=== PATIENT | female | born 1950 | race Caucasian/White ===

== ENCOUNTER 2016-10-11 23:17 | Inpatient (IN) | payer MEDICAID ==
[2016-10-12] MEDS ORDERED: METOCLOPRAMIDE HCL INJ/PF 10 MG/2 ML SDV IV ONE (03:30)
[2016-10-12] MEDS ORDERED: NORMAL SALINE 1000 ML 1,000 ML IV ONE (03:30)
[2016-10-12 03:49] LABS: ABSOLUTE BASOPHILS # (AUTO) 0.1 10^3/uL (0.0-0.2); ABSOLUTE EOSINOPHILS # (AUTO) 0.1 10^3/uL (0.0-0.6); ABSOLUTE LYMPHOCYTES (AUTO) 2.4 10^3/uL (0.5-4.7); ABSOLUTE MONOCYTES (AUTO) 0.5 10^3/uL (0.1-1.4); ABSOLUTE NEUT (AUTO) 11.4 10^3/uL (1.7-8.2); BASOPHILS % (AUTO) 0.7 % (0-2); EOSINOPHILS % (AUTO) 0.7 % (0-6); HEMOGLOBIN 14.4 g/dL (12.0-15.5); HGB HCT DIFFERENCE 0.2; LYMPHOCYTES % (AUTO) 16.6 % (13-45); MEAN CORPUSCULAR HEMOGLOBIN 30.1 pg (27.0-33.4); MEAN CORPUSCULAR HGB CONC 33.5 g/dL (32.0-36.0); MEAN CORPUSCULAR VOLUME 90 fl (80-97); MONOCYTES % (AUTO) 3.4 % (3-13); RED BLOOD COUNT 4.79 10^6/uL (3.72-5.28); RED CELL DISTRIBUTION WIDTH 13.6 % (11.5-14.0); SEGMENTED NEUTROPHILS % (AUTO) 78.6 % (42-78); WHITE BLOOD COUNT 14.5 10^3/uL (4.0-10.5)
[2016-10-12 04:15] LABS: ALANINE AMINOTRANSFERASE 37 U/L (9-52); ALKALINE PHOSPHATASE 116 U/L (38-126); ANION GAP 15 (5-19); ASPARTATE AMINO TRANSFERASE 35 U/L (14-36); BILIRUBIN,TOTAL 0.4 mg/dL (0.2-1.3); BLOOD UREA NITROGEN 19 mg/dL (7-20); CALCIUM 9.9 mg/dL (8.4-10.2); CARBON DIOXIDE 22 mmol/L (22-30); CHLORIDE 106 mmol/L (98-107); CREATININE RESULT 1.58 mg/dL (0.52-1.25); GLUCOSE 119 mg/dL (75-110); LIPASE 89.7 U/L (23-300); POTASSIUM 4.8 mmol/L (3.6-5.0); SODIUM 142.7 mmol/L (137-145); TOTAL PROTEIN 7.5 g/dL (6.3-8.2)
[2016-10-12 04:45] LABS: AMORPHOUS SEDIMENT,URINE TRACE /HPF; APPEARANCE,URINE CLEAR; BILIRUBIN,URINE NEGATIVE (NEGATIVE); GLUCOSE, URINE NEGATIVE (NEGATIVE); KETONES,URINE NEGATIVE (NEGATIVE); LEUKOCYTE ESTERASE,URINE NEGATIVE (NEGATIVE); NITRITE,URINE NEGATIVE (NEGATIVE); PROTEIN,URINE NEGATIVE (NEGATIVE); URINE SPECIFIC GRAVITY 1.011; UROBILINOGEN,URINE NEGATIVE mg/dL (<2.0)
[2016-10-12] MEDS ORDERED: PROMETHAZINE HCL INJ 25 MG/1 ML VIAL IM ONE (05:26)
[2016-10-12] MEDS ORDERED: PROMETHAZINE HCL INJ 25 MG/1 ML VIAL ONE (05:47)
--- NOTE | 2016-10-12 05:49 | ER Document Report ---
ED General - General Chief Complaint: Abdominal Pain Stated Complaint: ABDOMINAL PAIN Notes: Patient is a 66-year-old female presents with complaint of upper abdominal pain and vomiting. She says it's been ongoing for approximately 2 weeks. She is followed by Dr. Duque who has been working her up outpatient. She eventually had a HIDA scan performed this week. She did not you get the results. She says for last 4 days she's vomited every time she's tried to eat. She says she can barely hold down any liquids. She says she feels very dehydrated and unwell. No fevers. She's had diarrhea. No blood or stool. No other complaints at this time. TRAVEL OUTSIDE OF THE [place] IN LAST 30 DAYS: No - Related Data Allergies/Adverse Reactions: chlordiazepoxide Allergy (Severe, Verified 09/25/16 11:36) codeine [Codeine] Allergy (Severe, Verified 09/25/16 11:36) N&V, HIVES diazepam [From Valium] Allergy (Severe, Verified 09/25/16 11:36) HEART RACE, N&V trazodone Allergy (Verified 09/25/16 11:36) Past Medical History - General Information source: Patient - Social History Smoking Status: Never Smoker Chew tobacco use (# tins/day): No Frequency of alcohol use: None Drug Abuse: None Family History: Hypertension Patient has suicidal ideation: No Patient has homicidal ideation: No - Past Medical History Cardiac Medical History: Reports: Hx Hypertension Denies: Hx Coronary Artery Disease, Hx Heart Attack Pulmonary Medical History: Reports: Hx Bronchitis Denies: Hx Asthma, Hx COPD, Hx Pneumonia, Hx Tuberculosis Neurological Medical History: Denies: Hx Cerebrovascular Accident, Hx Seizures GI Medical History: Reports: Hx Gastroesophageal Reflux Disease, Hx Ulcer. Denies: Hx Hepatitis, Hx Hiatal Hernia Musculoskeltal Medical History: Denies Hx Arthritis Infectious Medical History: Denies: Hx Hepatitis Past Surgical History: Reports: Hx Hysterectomy. Denies: Hx Mastectomy, Hx Open Heart Surgery, Hx Pacemaker - Immunizations Hx Diphtheria, Pertussis, Tetanus Vaccination: No Review of Systems - Review of Systems Notes: My Normal Review Basic REVIEW OF SYSTEMS: CONSTITUTIONAL : Denies fever, chills, or sweats. Denies recent illness. RESPIRATORY: Denies cough, cold, or chest congestion. Denies shortness of breath, difficulty breathing, or wheezing. GASTROINTESTINAL: Some epigastric abdominal pain. Denies nausea, vomiting, or diarrhea. Denies constipation. Last BM: GENITOURINARY: Denies difficulty urinating, painful urination, burning, frequency, or blood in urine. MUSCULOSKELETAL: Denies neck or back pain or joint pain or swelling. SKIN: Denies rash or skin lesions. NEUROLOGICAL: Denies altered mental status or loss of consciousness. Denies headache. Denies weakness or paralysis or loss of use of either side. Denies problems with gait or speech. Denies sensory or motor loss. ALL OTHER SYSTEMS REVIEWED AND NEGATIVE. Physical Exam - Vital signs Vitals: Resp 16 10/12/16 04:00 - Notes Notes: General Appearance: Well nourished, alert, cooperative, no acute distress, no obvious discomfort. Vitals: reviewed, See vital signs table. Head: no swelling or tenderness to the head Eyes: PERRL, EOMI, Conjuctiva clear Mouth: No decreasd moisture Neck: Supple, no neck tenderness, No thyromegaly Lungs: No wheezing, No rales, No rhonci, No accessory muscle use, good air exchange bilaterally. Heart: Tachycardic rate, Regular rythm, No murmur, no rub Abdomen: Normal BS, soft, No rigidity, mild epigastric abdominal tenderness to palpation, mild abdominal distention. No guarding, no rebound, no abdominal masses, no organomegaly Extremities: strength 5/5 in all extremities, good pulses in all extremities, no swelling or tenderness in the extremities, no edema. Skin: warm, dry, appropriate color, no rash Neuro: speech clear, oriented x 3, normal affect, responds appropriately to questions. Course - Vital Signs Vital signs: Temp Pulse Resp BP Pulse Ox 98.4 F 80 16 102/68 99 10/12/16 05:06 10/12/16 05:06 10/12/16 05:06 10/12/16 05:06 10/12/16 05:06 - Laboratory Result Diagrams: 10/12/16 03:42 10/12/16 03:42 Laboratory results interpreted by me: 10/12/16 10/12/16 03:42 03:42 WBC 14.5 H Seg Neutrophils % 78.6 H Absolute Neutrophils 11.4 H Creatinine 1.58 H Est GFR ( Amer) 40 L Est GFR (Non-Af Amer) 33 L Glucose 119 H - Transfer of Care Notes: 10/12/16 07:39 Patient's clinical picture see more consistent colitis even though her recent HIDA scan suggested biliary dyskinesia. I therefore did obtain a stool culture. This was positive for C. difficile. I have given her Flagyl. Her nausea is improving but she still cannot hold down liquids for very long. I've given IV fluids as she appears dehydrated. I did speak with Dr. Quiroga who is covering for Dr. Duque who agrees to accept the patient for admission. Dictation of this chart was performed using voice recognition software; therefore, there may be some unintended grammatical errors. Discharge - Discharge Clinical Impression: C. difficile colitis Condition: Stable Disposition: ADMITTED INPATIENT Admitting Provider: Geremias Unit Admitted: [facility]
[2016-10-12] MEDS ORDERED: METRONIDAZOLE 500 MG/NS RTU 100 ML IV ONE (07:14)
[2016-10-12] MEDS ORDERED: ACETAMINOPHEN 325 MG TABLET PO PRN (09:03)
--- NOTE | 2016-10-12 09:40 | PDOC H&P ---
History of Present Illness Admission Date/PCP: 10/12/16 09:03 KALYN MERRILL, Patient complains of: Abdominal pain History of Present Illness: MARQUEZ JACOBO is a 66 year old female This is a 66-year-old female present with a complaint of upper abdominal pain and no vomiting. See says that this ongoing problem for last 2 weeks patient seen by Dr. Carrillo recently and ordered the hiada scan and EF is low patient also started complaining of loose stool this morning also abdominal cramps patient have ongoing problem for his bili for last several years and the patient was diagnosed with the ischemic colitis in the patient's also lose more weight he had patient's also have a history of the chronic kidney disease and currently see her Dr. Wallace Holt for that. Also see her Dr. Merrill in the emergency department patient's C. difficile is positive and patient also with renal failure also and patient was started on IV fluid and IV Flagyl) IMCU for further evaluation. Saw the patient patient is doing well still complaining some abdominal cramps and the pain the patient's started IV fluid and consult the surgery and Dr. Carrillo for further evaluation Past Medical History Cardiac Medical History: Reports: Hypertension Denies: Coronary Artery Disease, Myocardial Infarction Pulmonary Medical History: Reports: Bronchitis Denies: Asthma, Chronic Obstructive Pulmonary Disease (COPD), Pneumonia, Tuberculosis Neurological Medical History: Denies: Seizures Renal/ Medical History: Reports: Chronic Kidney Disease GI Medical History: Reports: Gastroesophageal Reflux Disease Denies: Hepatitis, Hiatal Hernia GI History Note: Ischemic colitis Musculoskeltal Medical History: Denies: Arthritis Hematology: Reports: Anemia Denies: Sickle Cell Disease Past Surgical History Past Surgical History: Reports: Hysterectomy Denies: Amputation, Mastectomy, Pacemaker Social History Smoking Status: Current Every Day Smoker Frequency of Alcohol Use: Occasional Hx Recreational Drug Use: No Hx Prescription Drug Abuse: No Family History Family History: Hypertension Parental Family History Reviewed: Yes Children Family History Reviewed: Yes Sibling(s) Family History Reviewed.: Yes Medication/Allergy Home Medications: Benazepril HCl [Lotensin 10 mg Tablet] 10 mg PO BID 07/27/12 Metoprolol Succinate 100 mg PO DAILY 07/27/12 Aspirin [Aspirin 81 mg Chewable Tablet] 1 tab PO DAILY 02/26/14 Estrogens,Conjugated [Premarin 0.625 Mg Tablet] 0.625 mg PO DAILY 06/07/15 Sertraline HCl [Zoloft] 25 mg PO DAILY 06/07/15 Acyclovir [Acyclovir 400 mg Tablet] 800 mg PO DAILY PRN 10/12/16 Amitrip HCl/Chlordiazepoxide [Chlordiazepox-Amitriptyl 10-25] 2 tab PO QHS 10/12 Fish Oil/Dha/Epa [Fish Oil 1,200 mg Fish Oil] 1 each PO DAILY 10/12/16 Omeprazole/Sodium Bicarbonate [Omeprazole-Bicarb 20-1,100 Cap] 1 each PO DAILY 10/12/16 Allergies/Adverse Reactions: chlordiazepoxide Allergy (Severe, Verified 09/25/16 11:36) codeine [Codeine] Allergy (Severe, Verified 09/25/16 11:36) N&V, HIVES diazepam [From Valium] Allergy (Severe, Verified 09/25/16 11:36) HEART RACE, N&V trazodone Allergy (Verified 09/25/16 11:36) Review of Systems Constitutional: PRESENT: anorexia, fatigue, weakness, weight loss Eyes: ABSENT: as per HPI, visual disturbances, other Ears: ABSENT: as per HPI, hearing changes, other Nose, Mouth, and Throat: ABSENT: as per HPI, headache(s), mouth pain, sore throat, vertigo, other Cardiovascular: ABSENT: as per HPI, chest pain, dyspnea on exertion, edema, orthropnea, palpitations, other Respiratory: ABSENT: as per HPI, cough, dyspnea, hemoptysis, sputum, other Gastrointestinal: PRESENT: abdominal pain, bloating, diarrhea, heartburn, nausea , vomiting Genitourinary: ABSENT: as per HPI, difficulty urinating, dysuria, hematuria, nocturia, other Musculoskeletal: ABSENT: as per HPI, back pain, deformity, joint swelling, muscle weakness, other Integumentary: ABSENT: as per HPI, diaphoresis, erythema, lesions, pruritus, rash, wounds, other Neurological: ABSENT: as per HPI, abnormal gait, abnormal movements, abnormal speech, confusion, convulsions, dizziness, focal weakness, frequent falls, lack of coordination, memory loss, numbness, paresthesias, restless legs, syncope, tingling, tremor(s), vertigo, weakness, other Psychiatric: ABSENT: as per HPI, anxiety, depression, hallucinations, homidical ideation, suicidal ideation, other Physical Exam Vital Signs: Temp Pulse Resp BP Pulse Ox 97.7 F 82 19 120/52 L 100 10/12/16 09:16 10/12/16 09:16 10/12/16 09:16 10/12/16 09:16 10/12/16 09:16 Intake & Output 10/11/16 10/12/16 10/13/16 06:59 06:59 06:59 Weight 52.9 kg General appearance: PRESENT: no acute distress Head exam: PRESENT: normocephalic Eye exam: PRESENT: PERRLA Mouth exam: PRESENT: dry mucosa, neck supple Neck exam: PRESENT: full ROM Respiratory exam: PRESENT: clear to auscultation nidia Cardiovascular exam: PRESENT: +S1, +S2 GI/Abdominal exam: PRESENT: normal bowel sounds, soft. ABSENT: rebound, tenderness Additonal comments: Mild tenderness in the right upper quadrant but no guarding no rigidity Rectal exam: PRESENT: deferred Extremities exam: ABSENT: pedal edema Musculoskeletal exam: PRESENT: ambulatory Neurological exam: PRESENT: alert, awake, oriented to person, oriented to place , oriented to time, oriented to situation Psychiatric exam: PRESENT: normal mood Skin exam: PRESENT: normal color Results Impressions: Acute Abdomen Series 10/12/16 03:30 IMPRESSION: NO RADIOGRAPHIC EVIDENCE FOR ACUTE ABDOMINAL DISEASE. Abdomen Ultrasound 10/12/16 05:18 IMPRESSION: 1. Gallbladder is contracted. No gallbladder wall thickening. No pericholecystic fluid. 2. Mild pelvocaliectasis on the right. No calculi identified. 3. Otherwise unremarkable right upper quadrant ultrasound. Assessment & Plan - Diagnosis (1) C. difficile colitis Is this a current diagnosis for this admission?: YesPlan: ASIS did not have any IV antibiotic recently but patient's C. difficile is positive patient also a history of ongoing colitis in the past and colonoscopy was done by Dr. Carrillo. We start the patient on IV Flagyl and consult by Dr. Carrillo further evaluation (2) Dehydration Is this a current diagnosis for this admission?: YesPlan: From persistent nausea vomiting and the diarrhea started IV fluid (3) Abdominal pain Qualifiers: Abdominal location: left upper quadrant Qualified Code(s): R10.12 - Left upper quadrant pain Is this a current diagnosis for this admission?: YesPlan: Patient's gallbladder ejection fraction is only 13% was submitted contributed the abdominal pain and nausea will consult the surgery and also consult Dr. Carrillo (4) Gallbladder disorder Is this a current diagnosis for this admission?: YesPlan: Consult surgery for further evaluation (5) Acute renal failure Qualifiers: Acute renal failure type: unspecified Qualified Code(s): N17.9 - Acute kidney failure, unspecified Is this a current diagnosis for this admission?: YesPlan: On the recent dehydration sent on chronic kidney disease with continuous IV fluid (6) Benign hypertension Is this a current diagnosis for this admission?: YesPlan: We will hold the blood pressure medications well patient's blood pressure was running low - Time Time Spent: 30 to 50 Minutes Medications reviewed and adjusted accordingly: Yes Anticipated discharge: Home Within: Other - Inpatient Certification Medical Necessity: Need Close Monitoring Due to Risk of Patient Decompensation, Need For IV Fluids, Need for IV Antibiotics 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
[2016-10-12] MEDS ORDERED: ENOXAPARIN SODIUM INJ 30 MG/0.3 ML DISP.SYRIN SUBCUT ONE (10:00)
[2016-10-12] MEDS: METRONIDAZOLE 500 MG/NS RTU 100 ML IV SCH ×3 (12:55→23:20)
--- NOTE | 2016-10-12 14:17 | PDOC CONSULTATION ---
Consultation Consult Date: 10/12/16 Attending physician:: LITTLE QUIROGA Consult reason:: Low ejection fraction of the gallbladder History of Present Illness Admission Date/PCP: 10/12/16 09:03 KALYN MERRILL, History of Present Illness: MARQUEZ JACOBO is a 66 year old female This is a 66-year-old female present with a complaint of upper abdominal pain and no vomiting. See says that this ongoing problem for last 2 weeks patient seen by Dr. Carrillo recently and ordered the hiada scan and EF is low patient also started complaining of loose stool this morning also abdominal cramps patient have ongoing problem for his bili for last several years and the patient was diagnosed with the ischemic colitis in the patient's also lose more weight he had patient's also have a history of the chronic kidney disease and currently see her Dr. Wallace Holt for that. Also see her Dr. Merrill in the emergency department patient's C. difficile is positive and patient also with renal failure also and patient was started on IV fluid and IV Flagyl) IMCU for further evaluation. Saw the patient patient is doing well still complaining some abdominal cramps and the pain the patient's started IV fluid and consult the surgery and Dr. Carrillo for further evaluation. Gen. surgeons addendum to the history of present illness: This Is the first episode in 2 years that the patient required hospitalization. There is a family history of C. difficile infection in the patient's grandson. Patient has a record going back to 2010 of abdominal pain and bloating mucousy bloody stools. She's had multiple colonoscopies by Dr. Haynes in 2010 much treated with polypectomy, as well as hemorrhoidal surgery. There is no family history of gallbladder disease. I could not find any record of ischemic colitis interpreted on a pathology report. Her ejection fraction of 13% on hida on . Past Medical History Cardiac Medical History: Reports: Hypertension Denies: Coronary Artery Disease, Myocardial Infarction Pulmonary Medical History: Reports: Bronchitis Denies: Asthma, Chronic Obstructive Pulmonary Disease (COPD), Pneumonia, Tuberculosis Neurological Medical History: Denies: Seizures Renal/ Medical History: Reports: Chronic Kidney Disease GI Medical History: Reports: Gastroesophageal Reflux Disease Denies: Hepatitis, Hiatal Hernia Musculoskeltal Medical History: Denies: Arthritis Psychiatric Medical History: Reports: Depression Hematology: Reports: Anemia Denies: Sickle Cell Disease Past Surgical History Past Surgical History: Reports: Hysterectomy Denies: Amputation, Mastectomy, Pacemaker Social History Smoking Status: Current Every Day Smoker Number of Years Smokin Frequency of Alcohol Use: Social Hx Recreational Drug Use: No Hx Prescription Drug Abuse: No Family History Family History: Hypertension Parental Family History Reviewed: Yes Children Family History Reviewed: Yes Sibling(s) Family History Reviewed.: Yes Medication/Allergy Home Medications: Benazepril HCl [Lotensin 10 mg Tablet] 10 mg PO BID 07/27/12 Metoprolol Succinate 100 mg PO DAILY 07/27/12 Aspirin [Aspirin 81 mg Chewable Tablet] 1 tab PO DAILY 02/26/14 Estrogens,Conjugated [Premarin 0.625 Mg Tablet] 0.625 mg PO DAILY 06/07/15 Sertraline HCl [Zoloft] 25 mg PO DAILY 06/07/15 Acyclovir [Acyclovir 400 mg Tablet] 800 mg PO DAILY PRN 10/12/16 Amitrip HCl/Chlordiazepoxide [Chlordiazepox-Amitriptyl 10-25] 2 tab PO QHS 10/12 Fish Oil/Dha/Epa [Fish Oil 1,200 mg Fish Oil] 1 each PO DAILY 10/12/16 Omeprazole/Sodium Bicarbonate [Omeprazole-Bicarb 20-1,100 Cap] 1 each PO DAILY 10/12/16 Ondansetron HCl [Zofran 4 mg Tablet] 1 tab PO Q6 10/12/16 Allergies/Adverse Reactions: chlordiazepoxide Allergy (Severe, Verified 09/25/16 11:36) codeine [Codeine] Allergy (Severe, Verified 09/25/16 11:36) N&V, HIVES diazepam [From Valium] Allergy (Severe, Verified 09/25/16 11:36) HEART RACE, N&V trazodone Allergy (Verified 09/25/16 11:36) Physical Exam Vital Signs: Temp Pulse Resp BP Pulse Ox 97.2 F 78 19 116/49 L 99 10/12/16 12:14 10/12/16 12:14 10/12/16 12:14 10/12/16 12:14 10/12/16 12:14 Intake & Output 10/11/16 10/12/16 10/13/16 06:59 06:59 06:59 Output Total 400 Balance -400 Weight 52.9 kg General appearance: PRESENT: mild distress Head exam: PRESENT: normocephalic Eye exam: PRESENT: EOMI Ear exam: PRESENT: normal external ear exam Mouth exam: PRESENT: dry mucosa Neck exam: PRESENT: full ROM Cardiovascular exam: PRESENT: RRR GI/Abdominal exam: PRESENT: distended, other - Diffusely tender; nonlocalized; no peritoneal signs no rigidity no organomegaly and no hernias appreciated. Musculoskeletal exam: PRESENT: ambulatory, deformity Neurological exam: PRESENT: alert, altered, awake Results Impressions: Acute Abdomen Series 10/12/16 03:30 IMPRESSION: NO RADIOGRAPHIC EVIDENCE FOR ACUTE ABDOMINAL DISEASE. Abdomen Ultrasound 10/12/16 05:18 IMPRESSION: 1. Gallbladder is contracted. No gallbladder wall thickening. No pericholecystic fluid. 2. Mild pelvocaliectasis on the right. No calculi identified. 3. Otherwise unremarkable right upper quadrant ultrasound. Status: Image reviewed by me Assessment & Plan - Diagnosis (1) Abdominal pain Qualifiers: Abdominal location: left upper quadrant Qualified Code(s): R10.12 - Left upper quadrant pain Is this a current diagnosis for this admission?: YesPlan: 1. Patient is suffering from acute superimposed on chronic sternal symptoms dating back to 2010. The most probable clinical diagnosis is colitis of some form, currently she is C. difficile positive and being treated for same. Given her recent colonoscopy, an EGD, there is no immediate indication for repeat endoscopy. 2. The contributing role of a contracted gallbladder on ultrasound with an impaired ejection fraction on Hida scanning is uncertain; she does not have cholecystitis, gallbladder perforation, or free air. SHe does not need emergent cholecystectomy. 3. I spoke with Dr. Quiroga regarding the above patient. Repeat her with supportive therapy, and manage her C. difficile colitis; once the clinical picture clears, the potential role of interval cholecystectomy can be discussed. - Time Time Spent: 50 to 70 Minutes Critical Time spent with patient: 15-24 minutes
[2016-10-12] MEDS: NORMAL SALINE 1000 ML 1,000 ML IV PRN (17:43)
[2016-10-12] MEDS: LANSOPRAZOLE 15 MG TAB.RAP.DR PO SCH (17:43)
[2016-10-13] MEDS: NORMAL SALINE 1000 ML 1,000 ML IV PRN ×2 (04:12→19:22)
[2016-10-13] MEDS: LANSOPRAZOLE 15 MG TAB.RAP.DR PO SCH ×2 (05:18→17:30)
[2016-10-13] MEDS: METRONIDAZOLE 500 MG/NS RTU 100 ML IV SCH ×3 (05:18→17:30)
[2016-10-13 06:06] LABS: MEAN CORPUSCULAR VOLUME 91 fl (80-97)
[2016-10-13 06:20] LABS: ALANINE AMINOTRANSFERASE 29 U/L (9-52); ALBUMIN 2.6 g/dL (3.5-5.0); ALKALINE PHOSPHATASE 81 U/L (38-126); ANION GAP 10 (5-19); ASPARTATE AMINO TRANSFERASE 19 U/L (14-36); BILIRUBIN,TOTAL 0.3 mg/dL (0.2-1.3); BLOOD UREA NITROGEN 10 mg/dL (7-20); CALCIUM 8.2 mg/dL (8.4-10.2); CARBON DIOXIDE 20 mmol/L (22-30); CHLORIDE 112 mmol/L (98-107); CREATININE RESULT 1.26 mg/dL (0.52-1.25); GLUCOSE 80 mg/dL (75-110); MAGNESIUM 1.5 mg/dL (1.6-2.3); POTASSIUM 4.3 mmol/L (3.6-5.0); SODIUM 141.9 mmol/L (137-145); TOTAL PROTEIN 5.4 g/dL (6.3-8.2)
[2016-10-13 06:35] LABS: ABSOLUTE EOSINOPHILS # (AUTO) 0.2 10^3/uL (0.0-0.6); ABSOLUTE LYMPHOCYTES (AUTO) 3.4 10^3/uL (0.5-4.7); ABSOLUTE MONOCYTES (AUTO) 0.4 10^3/uL (0.1-1.4); ABSOLUTE NEUT (AUTO) 3.7 10^3/uL (1.7-8.2); BASOPHILS % (AUTO) 0.5 % (0-2); HEMATOCRIT 34.7 % (36.0-47.0); HGB HCT DIFFERENCE 0.1; LYMPHOCYTES % (AUTO) 44.1 % (13-45); MEAN CORPUSCULAR HEMOGLOBIN 30.5 pg (27.0-33.4); MEAN CORPUSCULAR HGB CONC 33.5 g/dL (32.0-36.0); MONOCYTES % (AUTO) 5.7 % (3-13); RED BLOOD COUNT 3.81 10^6/uL (3.72-5.28); RED CELL DISTRIBUTION WIDTH 13.5 % (11.5-14.0); SEGMENTED NEUTROPHILS % (AUTO) 47.7 % (42-78); WHITE BLOOD COUNT 7.8 10^3/uL (4.0-10.5)
[2016-10-13 06:40] LABS: HEMOGLOBIN 11.6 g/dL (12.0-15.5)
[2016-10-13] MEDS: ENOXAPARIN SODIUM INJ 30 MG/0.3 ML DISP.SYRIN SUBCUT SCH (07:36)
[2016-10-13] MEDS ORDERED: ENOXAPARIN SODIUM INJ 40 MG/0.4 ML DISP.SYRIN SUBCUT SCH (08:00)
--- NOTE | 2016-10-13 15:34 | PDOC PROGRESS REPORT ---
Subjective Progress Note for:: 10/13/16 Subjective:: Denies nausea, vomiting, fever, she still have abdominal pain which is slightly improving since yesterday, she is having bloody bowel movement rectum, last one was early this morning, no further bowel movements since then. Physical Exam Vital Signs: Temp Pulse Resp BP Pulse Ox 98.1 F 93 16 127/52 H 98 10/13/16 12:09 10/13/16 14:00 10/13/16 12:09 10/13/16 12:09 10/13/16 12:09 Intake & Output 10/12/16 10/13/16 10/14/16 06:59 06:59 06:59 Intake Total 3572 Output Total 850 Balance 2722 Weight 53.9 kg General appearance: PRESENT: no acute distress, cooperative Head exam: PRESENT: atraumatic, normocephalic GI/Abdominal exam: PRESENT: soft, tenderness. ABSENT: firm, guarding, hernia, rebound, rigid Rectal exam: PRESENT: deferred Results Laboratory Results: 10/13/16 05:42 10/13/16 05:42 10/13/16 10/13/16 05:42 05:42 WBC 7.8 RBC 3.81 Hgb 11.6 L D Hct 34.7 L MCV 91 MCH 30.5 MCHC 33.5 RDW 13.5 Plt Count 158 Seg Neutrophils % 47.7 Lymphocytes % 44.1 Monocytes % 5.7 Eosinophils % 2.0 Basophils % 0.5 Absolute Neutrophils 3.7 Absolute Lymphocytes 3.4 Absolute Monocytes 0.4 Absolute Eosinophils 0.2 Absolute Basophils 0.0 Sodium 141.9 Potassium 4.3 Chloride 112 H Carbon Dioxide 20 L Anion Gap 10 BUN 10 Creatinine 1.26 H Est GFR ( Amer) 52 L Est GFR (Non-Af Amer) 43 L Glucose 80 Calcium 8.2 L Magnesium 1.5 L Total Bilirubin 0.3 AST 19 ALT 29 Alkaline Phosphatase 81 Total Protein 5.4 L Albumin 2.6 L Impressions: Acute Abdomen Series 10/12/16 03:30 IMPRESSION: NO RADIOGRAPHIC EVIDENCE FOR ACUTE ABDOMINAL DISEASE. Abdomen Ultrasound 10/12/16 05:18 IMPRESSION: 1. Gallbladder is contracted. No gallbladder wall thickening. No pericholecystic fluid. 2. Mild pelvocaliectasis on the right. No calculi identified. 3. Otherwise unremarkable right upper quadrant ultrasound. Assessment & Plan - Diagnosis (1) Abdominal pain Qualifiers: Abdominal location: left upper quadrant Qualified Code(s): R10.12 - Left upper quadrant pain Is this a current diagnosis for this admission?: YesPlan: Likely due to colitis, leukocyte is improving, plan: continue current antibiotics, full liquid diet, serial examination with a strict ins and outs. GI consultation for further management. (2) C. difficile colitis Is this a current diagnosis for this admission?: YesPlan: Continue antibiotics, continue full liquid diet, strict ins and outs, GI evaluation. (3) Gallbladder disorder Is this a current diagnosis for this admission?: YesPlan: Ejection fraction is 13%, patient would likely need an elective laparoscopic cholecystectomy possible open
--- NOTE | 2016-10-13 18:44 | PDOC PROGRESS REPORT ---
Subjective Progress Note for:: 10/13/16 Subjective:: Patient was admitted because of C. difficile colitis, she has hematochezia. She is so preoccupied with the idea of using Premarin ,hormonal therapy Physical Exam Vital Signs: Temp Pulse Resp BP Pulse Ox 98.1 F 101 H 16 129/58 H 98 10/13/16 15:45 10/13/16 15:45 10/13/16 15:45 10/13/16 15:45 10/13/16 15:45 Intake & Output 10/12/16 10/13/16 10/14/16 06:59 06:59 06:59 Intake Total 3572 1460 Output Total 850 Balance 2722 1460 Weight 53.9 kg General appearance: PRESENT: no acute distress Eye exam: PRESENT: PERRLA Respiratory exam: PRESENT: clear to auscultation nidia Cardiovascular exam: PRESENT: +S1, +S2 GI/Abdominal exam: PRESENT: distended, soft Results Laboratory Results: 10/13/16 05:42 10/13/16 05:42 10/13/16 10/13/16 05:42 05:42 WBC 7.8 RBC 3.81 Hgb 11.6 L D Hct 34.7 L MCV 91 MCH 30.5 MCHC 33.5 RDW 13.5 Plt Count 158 Seg Neutrophils % 47.7 Lymphocytes % 44.1 Monocytes % 5.7 Eosinophils % 2.0 Basophils % 0.5 Absolute Neutrophils 3.7 Absolute Lymphocytes 3.4 Absolute Monocytes 0.4 Absolute Eosinophils 0.2 Absolute Basophils 0.0 Sodium 141.9 Potassium 4.3 Chloride 112 H Carbon Dioxide 20 L Anion Gap 10 BUN 10 Creatinine 1.26 H Est GFR ( Amer) 52 L Est GFR (Non-Af Amer) 43 L Glucose 80 Calcium 8.2 L Magnesium 1.5 L Total Bilirubin 0.3 AST 19 ALT 29 Alkaline Phosphatase 81 Total Protein 5.4 L Albumin 2.6 L Impressions: Acute Abdomen Series 10/12/16 03:30 IMPRESSION: NO RADIOGRAPHIC EVIDENCE FOR ACUTE ABDOMINAL DISEASE. Abdomen Ultrasound 10/12/16 05:18 IMPRESSION: 1. Gallbladder is contracted. No gallbladder wall thickening. No pericholecystic fluid. 2. Mild pelvocaliectasis on the right. No calculi identified. 3. Otherwise unremarkable right upper quadrant ultrasound. Assessment & Plan - Diagnosis (1) Enterocolitis due to Clostridium difficile Is this a current diagnosis for this admission?: YesPlan: Continue Flagyl, we start by mouth Flagyl we'll stop IV Flagyl. She was admitted with severe colitis, the white blood cell count was 14,000 on admission
[2016-10-13] MEDS: METRONIDAZOLE 500 MG TABLET PO SCH ×2 (20:41→23:34)
[2016-10-14] MEDS: NORMAL SALINE 1000 ML 1,000 ML IV PRN (05:15)
[2016-10-14] MEDS: LANSOPRAZOLE 15 MG TAB.RAP.DR PO SCH ×2 (05:15→20:54)
[2016-10-14] MEDS: METRONIDAZOLE 500 MG TABLET PO SCH (05:15)
[2016-10-14 06:39] LABS: ABSOLUTE EOSINOPHILS # (AUTO) 0.2 10^3/uL (0.0-0.6); ABSOLUTE LYMPHOCYTES (AUTO) 2.2 10^3/uL (0.5-4.7); ABSOLUTE MONOCYTES (AUTO) 0.4 10^3/uL (0.1-1.4); ABSOLUTE NEUT (AUTO) 3.5 10^3/uL (1.7-8.2); BASOPHILS % (AUTO) 0.6 % (0-2); EOSINOPHILS % (AUTO) 3.6 % (0-6); HEMATOCRIT 31.6 % (36.0-47.0); HEMOGLOBIN 10.7 g/dL (12.0-15.5); HGB HCT DIFFERENCE 0.5; MEAN CORPUSCULAR HEMOGLOBIN 30.5 pg (27.0-33.4); MEAN CORPUSCULAR HGB CONC 33.8 g/dL (32.0-36.0); MEAN CORPUSCULAR VOLUME 90 fl (80-97); MONOCYTES % (AUTO) 5.6 % (3-13); RED CELL DISTRIBUTION WIDTH 13.3 % (11.5-14.0); SEGMENTED NEUTROPHILS % (AUTO) 55.2 % (42-78); WHITE BLOOD COUNT 6.3 10^3/uL (4.0-10.5)
[2016-10-14] MEDS: MAGNESIUM SULFATE/D5W 1 GM/100 ML RTUPB IV SCH ×2 (08:00→09:49)
[2016-10-14] MEDS: ONDANSETRON HCL INJ/PF 4 MG/2 ML SDV IV PRN ×2 (08:34→14:24)
[2016-10-14] MEDS: CIPROFLOXACIN 400 MG/D5W RTU 400 MG/200 ML RTUPB IV SCH ×2 (09:50→22:15)
[2016-10-14] MEDS: ENOXAPARIN SODIUM INJ 30 MG/0.3 ML DISP.SYRIN SUBCUT SCH (09:52)
--- NOTE | 2016-10-14 12:51 | PDOC CONSULTATION ---
Consultation Consult Date: 10/13/16 Attending physician:: MARÍA LAIRD Consult reason:: Abdominal pain. Diarrhea with some rectal bleeding. History of Present Illness Admission Date/PCP: 10/12/16 09:03 KALYN MERRILL, History of Present Illness: I was asked to see this patient by the attending physician. Patient is well- known to me. She has been been followed for several years. She seems to have had a persistent epigastric/right upper quadrant discomfort. She sent multiple upper endoscopies. In fact about 2-3 weeks ago showed he had an endoscopy. Biopsies were negative. I sent her for an ultrasound as well as a HIDA scan. She had abnormal findings. She call the office with worsening problems. She was advised to go to the emergency room. At that point she was admitted. Surgery saw her. She had been having complaints of abdominal bloating, diarrhea she was found to have Clostridium difficile colitis. She has since been treated and appears to be doing much better. However she's not passed any flatus yet. With regards to her abdominal discomfort I do suspect that she has biliary dyskinesia. However she has significant amount of anxiety. Past Medical History Cardiac Medical History: Reports: Hypertension Denies: Coronary Artery Disease, Myocardial Infarction Pulmonary Medical History: Reports: Bronchitis Denies: Asthma, Chronic Obstructive Pulmonary Disease (COPD), Pneumonia, Tuberculosis Neurological Medical History: Denies: Seizures Renal/ Medical History: Reports: Chronic Kidney Disease GI Medical History: Reports: Gastroesophageal Reflux Disease Denies: Hepatitis, Hiatal Hernia Musculoskeltal Medical History: Denies: Arthritis Psychiatric Medical History: Reports: Depression Hematology: Reports: Anemia Denies: Sickle Cell Disease Past Surgical History Past Surgical History: Reports: Hysterectomy Denies: Amputation, Mastectomy, Pacemaker Social History Smoking Status: Current Every Day Smoker Number of Years Smokin Frequency of Alcohol Use: Social Hx Recreational Drug Use: No Hx Prescription Drug Abuse: No Family History Family History: Hypertension Parental Family History Reviewed: Yes Children Family History Reviewed: Unknown Sibling(s) Family History Reviewed.: Unknown Medication/Allergy Home Medications: Benazepril HCl [Lotensin 10 mg Tablet] 10 mg PO BID 07/27/12 Metoprolol Succinate 100 mg PO DAILY 07/27/12 Aspirin [Aspirin 81 mg Chewable Tablet] 1 tab PO DAILY 02/26/14 Estrogens,Conjugated [Premarin 0.625 Mg Tablet] 0.625 mg PO DAILY 06/07/15 Sertraline HCl [Zoloft] 25 mg PO DAILY 06/07/15 Acyclovir [Acyclovir 400 mg Tablet] 800 mg PO DAILY PRN 10/12/16 Amitrip HCl/Chlordiazepoxide [Chlordiazepox-Amitriptyl 10-25] 2 tab PO QHS 10/12 Fish Oil/Dha/Epa [Fish Oil 1,200 mg Fish Oil] 1 each PO DAILY 10/12/16 Omeprazole/Sodium Bicarbonate [Omeprazole-Bicarb 20-1,100 Cap] 1 each PO DAILY 10/12/16 Ondansetron HCl [Zofran 4 mg Tablet] 1 tab PO Q6 10/12/16 Allergies/Adverse Reactions: chlordiazepoxide Allergy (Severe, Verified 09/25/16 11:36) codeine [Codeine] Allergy (Severe, Verified 09/25/16 11:36) N&V, HIVES diazepam [From Valium] Allergy (Severe, Verified 09/25/16 11:36) HEART RACE, N&V trazodone Allergy (Verified 09/25/16 11:36) Review of Systems Constitutional: ABSENT: anorexia, chills, fever(s), headache(s), night sweats Eyes: ABSENT: visual disturbances Ears: ABSENT: hearing changes Nose, Mouth, and Throat: ABSENT: mouth pain, sore throat Cardiovascular: ABSENT: chest pain, orthropnea, palpitations Respiratory: ABSENT: dyspnea, hemoptysis Gastrointestinal: PRESENT: abdominal pain, diarrhea, hematochezia. ABSENT: nausea, vomiting Genitourinary: ABSENT: dysuria, hematuria Musculoskeletal: ABSENT: deformity, joint swelling Integumentary: ABSENT: lesions, pruritus Neurological: ABSENT: focal weakness, syncope, tingling, tremor(s), vertigo Psychiatric: ABSENT: hallucinations, homidical ideation, suicidal ideation Endocrine: ABSENT: heat intolerance, menstrual abnormalities, polydipsia, polyphagia, polyuria Hematologic/Lymphatic: ABSENT: easy bruising Allergic/Immunologic: ABSENT: seasonal rhinorrhea Physical Exam Vital Signs: Temp Pulse Resp BP Pulse Ox 97.3 F 72 16 129/46 H 100 10/14/16 11:52 10/14/16 11:52 10/14/16 11:52 10/14/16 11:52 10/14/16 11:52 Intake & Output 10/13/16 10/14/16 10/15/16 06:59 06:59 06:59 Intake Total 3572 4360 Output Total 850 3400 Balance 2722 960 Weight 53.9 kg 55.7 kg General appearance: PRESENT: no acute distress, well-developed, well-nourished Head exam: PRESENT: atraumatic, normocephalic Eye exam: PRESENT: EOMI, PERRLA. ABSENT: nystagmus, periorbital swelling, scleral icterus Mouth exam: PRESENT: moist, neck supple Throat exam: ABSENT: tonsillar exudate, tonsillogmegaly Neck exam: ABSENT: meningismus, tenderness, thyromegaly Respiratory exam: PRESENT: clear to auscultation nidia, symmetrical, unlabored. ABSENT: chest wall tenderness Cardiovascular exam: PRESENT: RRR, +S1, +S2 Pulses: PRESENT: normal carotid pulses GI/Abdominal exam: PRESENT: normal bowel sounds, soft. ABSENT: Dodge's sign, rebound, tenderness Extremities exam: ABSENT: joint swelling Musculoskeletal exam: PRESENT: full ROM Neurological exam: PRESENT: alert, awake, oriented to person, oriented to place , oriented to time, oriented to situation, reflexes normal, CN II-XII grossly intact Psychiatric exam: PRESENT: anxious Skin exam: PRESENT: normal color. ABSENT: mottled, pallor, petechiae, urticaria , vesicles Results Laboratory Results: 10/14/16 06:23 10/13/16 05:42 10/14/16 10/14/16 06:23 06:23 WBC 6.3 RBC 3.50 L Hgb 10.7 L Hct 31.6 L MCV 90 MCH 30.5 MCHC 33.8 RDW 13.3 Plt Count 144 L Seg Neutrophils % 55.2 Lymphocytes % 35.0 Monocytes % 5.6 Eosinophils % 3.6 Basophils % 0.6 Absolute Neutrophils 3.5 Absolute Lymphocytes 2.2 Absolute Monocytes 0.4 Absolute Eosinophils 0.2 Absolute Basophils 0.0 Magnesium 1.4 L Impressions: Acute Abdomen Series 10/12/16 03:30 IMPRESSION: NO RADIOGRAPHIC EVIDENCE FOR ACUTE ABDOMINAL DISEASE. Abdomen Ultrasound 10/12/16 05:18 IMPRESSION: 1. Gallbladder is contracted. No gallbladder wall thickening. No pericholecystic fluid. 2. Mild pelvocaliectasis on the right. No calculi identified. 3. Otherwise unremarkable right upper quadrant ultrasound. Assessment & Plan - Diagnosis (1) Abdominal pain Qualifiers: Abdominal location: left upper quadrant Qualified Code(s): R10.12 - Left upper quadrant pain Is this a current diagnosis for this admission?: YesPlan: Recent upper endoscopy negative. Gallbladder work up that showed biliary dyskinesia. At some point will need to consider surgery. This obviously complicated by the fact that she has a significant amount of anxiety. (2) C. difficile colitis Is this a current diagnosis for this admission?: YesPlan: Continue antibiotics. Her white blood cell count should decrease. She can be started on a regular diet today. If she can tolerate she can likely be discharged. Follow-up colonoscopy is needed can be done as an outpatient. - Time Time Spent: 50 to 70 Minutes Medications reviewed and adjusted accordingly: Yes Anticipated discharge: Home Within: within 48 hours
--- NOTE | 2016-10-14 12:56 | PDOC PROGRESS REPORT ---
Subjective Progress Note for:: 10/14/16 Subjective:: Patient was seen yesterday. She is feeling better today. Still significantly anxious about several issues. She has had no further diarrhea. No further passage of blood per rectum. She can likely be advanced on her diet. Likely outpatient referral for cholecystectomy. She currently denies any chest pain or shortness of breath. Her white count seems to have resolved. Her hemoglobin is stable. Physical Exam Vital Signs: Temp Pulse Resp BP Pulse Ox 97.3 F 72 16 129/46 H 100 10/14/16 11:52 10/14/16 11:52 10/14/16 11:52 10/14/16 11:52 10/14/16 11:52 Intake & Output 10/13/16 10/14/16 10/15/16 06:59 06:59 06:59 Intake Total 3572 4360 Output Total 850 3400 Balance 2722 960 Weight 53.9 kg 55.7 kg General appearance: PRESENT: no acute distress, cooperative, well-developed, well-nourished Head exam: PRESENT: atraumatic, normocephalic Eye exam: PRESENT: EOMI, PERRLA. ABSENT: nystagmus, periorbital swelling Mouth exam: PRESENT: moist, neck supple Throat exam: ABSENT: tonsillar exudate, tonsillogmegaly Neck exam: ABSENT: meningismus, tenderness, thyromegaly Respiratory exam: PRESENT: clear to auscultation nidia, symmetrical, unlabored Cardiovascular exam: PRESENT: RRR, +S1, +S2 Pulses: PRESENT: normal carotid pulses GI/Abdominal exam: PRESENT: distended, normal bowel sounds, soft. ABSENT: rebound, tenderness Musculoskeletal exam: PRESENT: full ROM Neurological exam: PRESENT: alert, awake, oriented to time, oriented to situation, reflexes normal, CN II-XII grossly intact Psychiatric exam: PRESENT: anxious Skin exam: PRESENT: normal color. ABSENT: mottled, pallor, petechiae, urticaria , vesicles Results Laboratory Results: 10/14/16 06:23 10/13/16 05:42 10/14/16 10/14/16 06:23 06:23 WBC 6.3 RBC 3.50 L Hgb 10.7 L Hct 31.6 L MCV 90 MCH 30.5 MCHC 33.8 RDW 13.3 Plt Count 144 L Seg Neutrophils % 55.2 Lymphocytes % 35.0 Monocytes % 5.6 Eosinophils % 3.6 Basophils % 0.6 Absolute Neutrophils 3.5 Absolute Lymphocytes 2.2 Absolute Monocytes 0.4 Absolute Eosinophils 0.2 Absolute Basophils 0.0 Magnesium 1.4 L Impressions: Acute Abdomen Series 10/12/16 03:30 IMPRESSION: NO RADIOGRAPHIC EVIDENCE FOR ACUTE ABDOMINAL DISEASE. Abdomen Ultrasound 10/12/16 05:18 IMPRESSION: 1. Gallbladder is contracted. No gallbladder wall thickening. No pericholecystic fluid. 2. Mild pelvocaliectasis on the right. No calculi identified. 3. Otherwise unremarkable right upper quadrant ultrasound. Assessment & Plan - Diagnosis (1) Abdominal pain Qualifiers: Abdominal location: left upper quadrant Qualified Code(s): R10.12 - Left upper quadrant pain Is this a current diagnosis for this admission?: YesPlan: Likely due to biliary dyskinesia. There is obviously a separate component due to colitis due to C. difficile. Continue treatment for 14 days. Outpatient follow-up with regards to that. She can have colonoscopy at that point. Surgery has seen her blood they want await until she gets better for consideration of possible cholecystectomy. (2) C. difficile colitis Is this a current diagnosis for this admission?: YesPlan: Continue current antibiotics. Family advise to take necessary precautions at home to avoid reinfection with C. difficile. Advance diet as tolerated. Discontinue IV and possible discharge if no other issues. Hemoglobin is stable. No further bleeding is noted.
--- NOTE | 2016-10-14 17:34 | PDOC PROGRESS REPORT ---
Subjective Progress Note for:: 10/14/16 Subjective:: She is having difficulty tolerating by mouth Flagyl, we will transition back to IV Flagyl, the Flagyl was changed to by mouth yesterday Physical Exam Vital Signs: Temp Pulse Resp BP Pulse Ox 97.5 F 77 18 129/64 H 100 10/14/16 15:49 10/14/16 15:49 10/14/16 15:49 10/14/16 15:49 10/14/16 15:49 Intake & Output 10/13/16 10/14/16 10/15/16 06:59 06:59 06:59 Intake Total 3572 4360 Output Total 850 3400 Balance 2722 960 Weight 53.9 kg 55.7 kg General appearance: PRESENT: mild distress Eye exam: PRESENT: PERRLA Respiratory exam: PRESENT: clear to auscultation nidia Cardiovascular exam: PRESENT: +S1, +S2 GI/Abdominal exam: PRESENT: distended Results Laboratory Results: 10/14/16 06:23 10/13/16 05:42 10/14/16 10/14/16 06:23 06:23 WBC 6.3 RBC 3.50 L Hgb 10.7 L Hct 31.6 L MCV 90 MCH 30.5 MCHC 33.8 RDW 13.3 Plt Count 144 L Seg Neutrophils % 55.2 Lymphocytes % 35.0 Monocytes % 5.6 Eosinophils % 3.6 Basophils % 0.6 Absolute Neutrophils 3.5 Absolute Lymphocytes 2.2 Absolute Monocytes 0.4 Absolute Eosinophils 0.2 Absolute Basophils 0.0 Magnesium 1.4 L Impressions: Acute Abdomen Series 10/12/16 03:30 IMPRESSION: NO RADIOGRAPHIC EVIDENCE FOR ACUTE ABDOMINAL DISEASE. Abdomen Ultrasound 10/12/16 05:18 IMPRESSION: 1. Gallbladder is contracted. No gallbladder wall thickening. No pericholecystic fluid. 2. Mild pelvocaliectasis on the right. No calculi identified. 3. Otherwise unremarkable right upper quadrant ultrasound. Assessment & Plan - Diagnosis (1) Enterocolitis due to Clostridium difficile Is this a current diagnosis for this admission?: YesPlan: Start IV Flagyl.
[2016-10-14] MEDS ORDERED: SIMETHICONE 80 MG TAB.CHEW PO PRN (17:35)
[2016-10-14] MEDS ORDERED: METOCLOPRAMIDE HCL INJ/PF 10 MG/2 ML SDV IV ONE (19:30)
[2016-10-14] MEDS ORDERED: METRONIDAZOLE 500 MG/NS RTU 100 ML IV ONE (19:45)
[2016-10-14] MEDS ORDERED: CHLORDIAZEPOXIDE PO SCH ×2 (22:00)
[2016-10-14] MEDS ORDERED: [UNRECOGNIZED DRUG - OTHER] PO SCH (22:00)
[2016-10-14] MEDS ORDERED: AMITRIPTYLINE PO SCH (22:00)
[2016-10-15] MEDS: METRONIDAZOLE 500 MG/NS RTU 100 ML IV SCH ×4 (00:39→17:04)
[2016-10-15] MEDS: METOCLOPRAMIDE HCL INJ/PF 10 MG/2 ML SDV IV SCH ×4 (00:40→17:05)
[2016-10-15] MEDS: LANSOPRAZOLE 15 MG TAB.RAP.DR PO SCH ×2 (05:23→17:05)
[2016-10-15 06:48] LABS: ABSOLUTE EOSINOPHILS # (AUTO) 0.3 10^3/uL (0.0-0.6); ABSOLUTE LYMPHOCYTES (AUTO) 2.4 10^3/uL (0.5-4.7); ABSOLUTE MONOCYTES (AUTO) 0.3 10^3/uL (0.1-1.4); ABSOLUTE NEUT (AUTO) 3.1 10^3/uL (1.7-8.2); BASOPHILS % (AUTO) 0.6 % (0-2); EOSINOPHILS % (AUTO) 4.7 % (0-6); HEMATOCRIT 32.3 % (36.0-47.0); HGB HCT DIFFERENCE 0.7; LYMPHOCYTES % (AUTO) 38.5 % (13-45); MEAN CORPUSCULAR HEMOGLOBIN 30.4 pg (27.0-33.4); MEAN CORPUSCULAR HGB CONC 34.1 g/dL (32.0-36.0); MEAN CORPUSCULAR VOLUME 89 fl (80-97); MONOCYTES % (AUTO) 5.6 % (3-13); RED BLOOD COUNT 3.62 10^6/uL (3.72-5.28); RED CELL DISTRIBUTION WIDTH 13.6 % (11.5-14.0); SEGMENTED NEUTROPHILS % (AUTO) 50.6 % (42-78); WHITE BLOOD COUNT 6.2 10^3/uL (4.0-10.5)
--- NOTE | 2016-10-15 07:24 | PDOC PROGRESS REPORT ---
Subjective Progress Note for:: 10/14/16 Subjective:: Seen earlier. Still with some abdominal pain. No bowel movements. Tolerated liquids. Physical Exam Vital Signs: Temp Pulse Resp BP Pulse Ox 97.5 F 78 16 114/64 97 10/15/16 04:30 10/15/16 04:30 10/15/16 04:30 10/15/16 04:30 10/15/16 04:30 Intake & Output 10/13/16 10/14/16 10/15/16 06:59 06:59 06:59 Intake Total 3572 4360 1888 Output Total 850 3400 2300 Balance 2722 960 -412 Weight 53.9 kg 55.7 kg General appearance: PRESENT: no acute distress Eye exam: PRESENT: EOMI Mouth exam: PRESENT: tongue midline GI/Abdominal exam: PRESENT: distended, soft, tenderness - Mild epigastric pain. No Dodge sign.. ABSENT: guarding, rigid Neurological exam: PRESENT: alert, oriented to situation Results Laboratory Results: 10/15/16 06:34 10/13/16 05:42 10/14/16 10/15/16 06:23 06:34 WBC 6.2 RBC 3.62 L Hgb 11.0 L Hct 32.3 L MCV 89 MCH 30.4 MCHC 34.1 RDW 13.6 Plt Count 155 Seg Neutrophils % 50.6 Lymphocytes % 38.5 Monocytes % 5.6 Eosinophils % 4.7 Basophils % 0.6 Absolute Neutrophils 3.1 Absolute Lymphocytes 2.4 Absolute Monocytes 0.3 Absolute Eosinophils 0.3 Absolute Basophils 0.0 Magnesium 1.4 L Impressions: Acute Abdomen Series 10/12/16 03:30 IMPRESSION: NO RADIOGRAPHIC EVIDENCE FOR ACUTE ABDOMINAL DISEASE. Abdomen Ultrasound 10/12/16 05:18 IMPRESSION: 1. Gallbladder is contracted. No gallbladder wall thickening. No pericholecystic fluid. 2. Mild pelvocaliectasis on the right. No calculi identified. 3. Otherwise unremarkable right upper quadrant ultrasound. Assessment & Plan - Diagnosis (1) C. difficile colitis Is this a current diagnosis for this admission?: YesPlan: Gradual improvement. Less pain. No BMs for the last 36-48 hours. Spent a long time discussing with her current problems are due to C. difficile colitis or gallbladder. Bloody stools are not attributable to the gallbladder. She does not have Dodge sign. A significant portion of people given a HIDA scan while acutely ill would have a false positive result. If there is some concern for separate issues caused by the gallbladder, she should be retested in 4-6 weeks once she has recovered from her C. difficile colitis.
[2016-10-15] MEDS: ENOXAPARIN SODIUM INJ 30 MG/0.3 ML DISP.SYRIN SUBCUT SCH (08:35)
[2016-10-15 08:46] LABS: ALANINE AMINOTRANSFERASE 28 U/L (9-52); ALKALINE PHOSPHATASE 73 U/L (38-126); ANION GAP 9 (5-19); ASPARTATE AMINO TRANSFERASE 30 U/L (14-36); BILIRUBIN,TOTAL 0.3 mg/dL (0.2-1.3); BLOOD UREA NITROGEN 6 mg/dL (7-20); CALCIUM 8.7 mg/dL (8.4-10.2); CARBON DIOXIDE 22 mmol/L (22-30); CHLORIDE 113 mmol/L (98-107); CREATININE RESULT 1.19 mg/dL (0.52-1.25); GLUCOSE 85 mg/dL (75-110); POTASSIUM 4.2 mmol/L (3.6-5.0); SODIUM 143.7 mmol/L (137-145); TOTAL PROTEIN 5.5 g/dL (6.3-8.2)
[2016-10-15] MEDS: CIPROFLOXACIN 400 MG/D5W RTU 400 MG/200 ML RTUPB IV SCH (09:10)
--- NOTE | 2016-10-15 13:24 | PDOC PROGRESS REPORT ---
Subjective Progress Note for:: 10/15/16 Subjective:: Patient has been having difficulty taking Flagyl orally. She has been changed back to an IV formulation. She continues to have some abdominal distention. She states that she is passing flatus. However will be more appropriate for her to take her Flagyl orally as that is likely going to be more effective. She had a HIDA scan done prior to her admission and it did show an ejection fraction of approximately 13%. She's had chronic right upper quadrant pain over many years and I do suspect that once she is better from her C. difficile colitis that she would need outpatient cholecystectomy. She has significant amount of anxiety. At that sometimes has complicated her care in the past. She denies any melena, she's not had any further diarrhea, there is no hematochezia Physical Exam Vital Signs: Temp Pulse Resp BP Pulse Ox 97.3 F 79 18 130/60 H 100 10/15/16 11:50 10/15/16 11:50 10/15/16 11:50 10/15/16 11:50 10/15/16 11:50 Intake & Output 10/14/16 10/15/16 10/16/16 06:59 06:59 06:59 Intake Total 4360 2313 Output Total 3400 2900 Balance 960 -587 Weight 55.7 kg 51.9 kg General appearance: PRESENT: no acute distress, cooperative Head exam: PRESENT: atraumatic, normocephalic Eye exam: PRESENT: EOMI, PERRLA. ABSENT: nystagmus, periorbital swelling Mouth exam: PRESENT: moist Throat exam: ABSENT: tonsillar exudate, tonsillogmegaly Neck exam: ABSENT: meningismus, tenderness, thyromegaly, tracheostomy Respiratory exam: PRESENT: clear to auscultation nidia, symmetrical, unlabored Cardiovascular exam: PRESENT: RRR, +S1, +S2. ABSENT: rubs GI/Abdominal exam: PRESENT: distended, tenderness. ABSENT: guarding, rebound Musculoskeletal exam: PRESENT: full ROM Neurological exam: PRESENT: alert, awake, oriented to person, oriented to place , oriented to time, oriented to situation, reflexes normal, CN II-XII grossly intact Psychiatric exam: PRESENT: anxious Skin exam: PRESENT: normal color. ABSENT: mottled, pallor, petechiae, urticaria , vesicles Results Laboratory Results: 10/15/16 06:34 10/15/16 06:34 10/15/16 10/15/16 10/15/16 06:34 06:34 06:34 WBC 6.2 RBC 3.62 L Hgb 11.0 L Hct 32.3 L MCV 89 MCH 30.4 MCHC 34.1 RDW 13.6 Plt Count 155 Seg Neutrophils % 50.6 Lymphocytes % 38.5 Monocytes % 5.6 Eosinophils % 4.7 Basophils % 0.6 Absolute Neutrophils 3.1 Absolute Lymphocytes 2.4 Absolute Monocytes 0.3 Absolute Eosinophils 0.3 Absolute Basophils 0.0 Sodium 143.7 Potassium 4.2 Chloride 113 H Carbon Dioxide 22 Anion Gap 9 BUN 6 L Creatinine 1.19 Est GFR ( Amer) 55 L Est GFR (Non-Af Amer) 46 L Glucose 85 Calcium 8.7 Magnesium 1.6 Total Bilirubin 0.3 AST 30 ALT 28 Alkaline Phosphatase 73 Total Protein 5.5 L Albumin 3.0 L Impressions: Acute Abdomen Series 10/12/16 03:30 IMPRESSION: NO RADIOGRAPHIC EVIDENCE FOR ACUTE ABDOMINAL DISEASE. Abdomen Ultrasound 10/12/16 05:18 IMPRESSION: 1. Gallbladder is contracted. No gallbladder wall thickening. No pericholecystic fluid. 2. Mild pelvocaliectasis on the right. No calculi identified. 3. Otherwise unremarkable right upper quadrant ultrasound. Assessment & Plan - Diagnosis (1) Abdominal pain Qualifiers: Abdominal location: left upper quadrant Qualified Code(s): R10.12 - Left upper quadrant pain Is this a current diagnosis for this admission?: YesPlan: HIDA scan and gallbladder workup was done prior to admission. She is noted to have biliary dyskinesia. Ejection fraction of the gallbladder is only noted at 13%. She has had chronic hep B gastric the right upper quadrant pain over many years. Her recent upper endoscopy is negative. She'll need outpatient consideration of cholecystectomy. (2) C. difficile colitis Is this a current diagnosis for this admission?: YesPlan: Continue Flagyl but would prefer oral administration. She was converted back to IV yesterday which may not be as effective. (3) Anxiety Plan: Patient reassured. - Time Time Spent with patient: 15-24 minutes
[2016-10-15 16:07] VITALS: BP 125/59
--- NOTE | 2016-10-15 19:13 | PDOC DISCHARGE SUMMARY ---
General - Admit/Disc Date/PCP Admission Date/Primary Care Provider: 10/12/16 09:03 KALYN MERRILL, Discharge Date: 10/15/16 - Discharge Diagnosis (1) Enterocolitis due to Clostridium difficile Is this a current diagnosis for this admission?: Yes - Additional Information Home Medications: Benazepril HCl [Lotensin 10 mg Tablet] 10 mg PO BID 07/27/12 Metoprolol Succinate 100 mg PO DAILY 07/27/12 Aspirin [Aspirin 81 mg Chewable Tablet] 1 tab PO DAILY 02/26/14 Sertraline HCl [Zoloft] 25 mg PO DAILY 06/07/15 Acyclovir [Acyclovir 400 mg Tablet] 800 mg PO DAILY PRN 10/12/16 Amitrip HCl/Chlordiazepoxide [Chlordiazepox-Amitriptyl 08-04] 2 tab PO QHS 10/12 Fish Oil/Dha/Epa [Fish Oil 1,200 mg Fish Oil] 1 each PO DAILY 10/12/16 Omeprazole/Sodium Bicarbonate [Omeprazole-Bicarb 20-1,100 Cap] 1 each PO DAILY 10/12/16 Ondansetron HCl [Zofran 4 mg Tablet] 1 tab PO Q6 10/12/16 Metoclopramide HCl [Reglan 10 mg Tablet] 10 mg PO ACHS #120 tablet 10/15/16 Metronidazole [Flagyl 500 mg Tablet] 500 mg PO TID #21 tablet 10/15/16 Simethicone [Mylicon 80 mg Chewable Tablet] 80 mg PO QIDP PRN #120 tab.chew 02/24 History of Present Illness History of Present Illness: MARQUEZ JACOBO is a 66 year old female, she was admitted because of severe C. difficile colitis Hospital Course Hospital Course: Patient was admitted because of severe C. difficile colitis, that was bloody diarrhea with abdominal distention, she was treated with IV Flagyl and ultimately transitioned to by mouth Flagyl. She also required Reglan with gas x to continue the GI symptoms of abdominal distention and diarrhea. She was seen by GI and also the surgeon. She also have a history of dyskinesis of the gallbladder and she will require outpatient cholecystectomy Physical Exam Vital Signs: Temp Pulse Resp BP Pulse Ox 97.8 F 81 16 125/59 L 97 10/15/16 15:30 10/15/16 15:30 10/15/16 15:30 10/15/16 15:30 10/15/16 15:30 Intake & Output 10/14/16 10/15/16 10/16/16 06:59 06:59 06:59 Intake Total 4360 2313 878 Output Total 3400 2900 900 Balance 960 -587 -22 Weight 55.7 kg 51.9 kg General appearance: PRESENT: no acute distress Head exam: PRESENT: atraumatic, normocephalic Eye exam: PRESENT: EOMI, PERRLA Mouth exam: PRESENT: moist, tongue midline Neck exam: PRESENT: full ROM. ABSENT: carotid bruit, JVD, lymphadenopathy, thyromegaly Respiratory exam: PRESENT: clear to auscultation nidia Cardiovascular exam: PRESENT: RRR, +S1, +S2. ABSENT: systolic murmur Pulses: PRESENT: normal dorsalis pedis pul GI/Abdominal exam: PRESENT: normal bowel sounds, soft. ABSENT: guarding, organolmegaly, tenderness Rectal exam: PRESENT: deferred Neurological exam: PRESENT: alert, awake, oriented to person, oriented to place , oriented to time, oriented to situation, CN II-XII grossly intact Psychiatric exam: PRESENT: appropriate affect, normal mood Skin exam: PRESENT: dry, intact, warm. ABSENT: cyanosis, rash Results Laboratory Results: 10/15/16 06:34 10/15/16 06:34 10/15/16 10/15/16 10/15/16 06:34 06:34 06:34 WBC 6.2 RBC 3.62 L Hgb 11.0 L Hct 32.3 L MCV 89 MCH 30.4 MCHC 34.1 RDW 13.6 Plt Count 155 Seg Neutrophils % 50.6 Lymphocytes % 38.5 Monocytes % 5.6 Eosinophils % 4.7 Basophils % 0.6 Absolute Neutrophils 3.1 Absolute Lymphocytes 2.4 Absolute Monocytes 0.3 Absolute Eosinophils 0.3 Absolute Basophils 0.0 Sodium 143.7 Potassium 4.2 Chloride 113 H Carbon Dioxide 22 Anion Gap 9 BUN 6 L Creatinine 1.19 Est GFR ( Amer) 55 L Est GFR (Non-Af Amer) 46 L Glucose 85 Calcium 8.7 Magnesium 1.6 Total Bilirubin 0.3 AST 30 ALT 28 Alkaline Phosphatase 73 Total Protein 5.5 L Albumin 3.0 L Impressions: Acute Abdomen Series 10/12/16 03:30 IMPRESSION: NO RADIOGRAPHIC EVIDENCE FOR ACUTE ABDOMINAL DISEASE. Abdomen Ultrasound 10/12/16 05:18 IMPRESSION: 1. Gallbladder is contracted. No gallbladder wall thickening. No pericholecystic fluid. 2. Mild pelvocaliectasis on the right. No calculi identified. 3. Otherwise unremarkable right upper quadrant ultrasound.
== END 2016-10-15 19:51 | disposition home or self-care (01) | DRG 372 ==
LOC: ER 23:17 → EH 10-12 07:47 → UNDOADMIN 10-12 07:47 → 3S 10-12 08:55 → EH 10-12 08:55 → 3S 10-12 09:03
PROVIDERS: ADMIT Internal Medicine; ATTEND Internal Medicine
DX: A04.7 Enterocolitis due to Clostridium difficile (principal); N17.9 Acute kidney failure, unspecified; K82.8 Other specified diseases of gallbladder; D64.9 Anemia, unspecified; I12.9 Hypertensive chronic kidney disease with stage 1 through stage 4 chronic kidney disease, or unspecified chronic kidney disease; N18.9 Chronic kidney disease, unspecified; E86.0 Dehydration; K21.9 Gastro-esophageal reflux disease without esophagitis; R41.0 Disorientation, unspecified; F41.9 Anxiety disorder, unspecified; F17.210 Nicotine dependence, cigarettes, uncomplicated; Z79.82 Long term (current) use of aspirin
CPT/HCPCS: 36415; 74022; 76705; 80053; 81001; 83690; 83735; 85025; 87045; 87205; 87493; 93976; 96361; 96372; 96374; 99285; J0744; J2405; J2550; J2765; J3475; J7030

== ENCOUNTER 2016-11-02 06:57 | Day surgery (SDC) | payer MEDICAID ==
[2016-11-02] MEDS ORDERED: PROPOFOL INJ 200 MG/20 ML VIAL IV ONE (07:17)
[2016-11-02 09:17] VITALS: BP 109/54
--- NOTE | 2016-11-02 13:58 | Operative Report ---
Operative Report DATE OF SURGERY: 11/02/16 Operative Report: The risks, benefits and alternatives of the procedure including risks of bleeding, perforation requiring surgery are explained to the patient in detail and informed consent is obtained. Patient is taken back to the endoscopy suite. Timeout is called. Propofol medications administered. A rectal examination was done which did not reveal any masses, tears or fissures. An Olympus videoscope was inserted into the patient's rectum. Keeping the lumen in site at all times the scope was then gradually advanced all the way to the cecum the cecum was identified by the usual anatomical landmarks including the ileocecal valve as well as the appendiceal office. Photodocumentation was obtained. Prep is good. Scope was then sequentially pulled back via the various segments of the colon including the ascending colon, hepatic flexure, splenic flexure, descending colon and rectosigmoid colon. Retroflexion maneuvers performed. PREOPERATIVE DIAGNOSIS: Change of bowel habits. Abdominal distention. Rule out ischemic colitis POSTOPERATIVE DIAGNOSIS: 3 cecal polyps removed via snare polypectomy and retrieved. Right-sided colitis status post biopsy. No evidence of ischemia. Polyp in the splenic flexure area that is removed via snare polypectomy. Internal hemorrhoids OPERATION: Colonoscopy with snare polypectomy. Colonoscopy with biopsy SURGEON: MARÍA LAIRD ANESTHESIA: LMAC TISSUE REMOVED OR ALTERED: Colon polyps retrieved. Right sided inflammation status post biopsy COMPLICATIONS: None. ESTIMATED BLOOD LOSS: none. INTRAOPERATIVE FINDINGS: Described above. No evidence of masses, AVMs, diverticulosis. PROCEDURE: Patient tolerated the procedure well. No immediate postprocedure complications are noted. Patient is discharged in good condition. Discharge date 11/02/2016. Discharge diet: Regular. Discharge activity: Regular. Surveillance colonoscopy in 3-5 years Patient is instructed to call the office or proceed to the emergency room should there be any further problems or questions. She does have a 2-3 week follow-up to discuss findings. We'll await on biopsies
== END 2016-11-02 09:20 | disposition home or self-care (01) ==
LOC: END 06:57
PROVIDERS: ATTEND Internal Medicine Gastroenterology
PROC: 0DBE8ZX Excision of Large Intestine, Via Natural or Artificial Opening Endoscopic, Diagnostic (ICD-10-PCS; 2016-11-02)
PROC: 0DBF8ZX Excision of Right Large Intestine, Via Natural or Artificial Opening Endoscopic, Diagnostic (ICD-10-PCS; principal; 2016-11-02 08:00)
PROC: 0DBH8ZX Excision of Cecum, Via Natural or Artificial Opening Endoscopic, Diagnostic (ICD-10-PCS; 2016-11-02 08:00)
DX: D12.0 Benign neoplasm of cecum (principal); K63.5 Polyp of colon; K64.8 Other hemorrhoids; K52.9 Noninfective gastroenteritis and colitis, unspecified; A04.7 Enterocolitis due to Clostridium difficile; I10 Essential (primary) hypertension; E78.2 Mixed hyperlipidemia; Z79.899 Other long term (current) drug therapy; Z88.5 Allergy status to narcotic agent; Z79.82 Long term (current) use of aspirin
CPT/HCPCS: 45380; 45385; 88305 ×2; J2704; 810

== ENCOUNTER → 2016-12-07 | Outpatient (CLI) | payer MEDICAID | LOC: WI 13:54 | PROVIDERS: ATTEND Internal Medicine | DX: Z12.31 Encounter for screening mammogram for malignant neoplasm of breast (principal) | CPT/HCPCS: 77067; G0202 ==

== ENCOUNTER 2016-12-23 06:58 | Day surgery (SDC) | payer MEDICAID ==
--- NOTE | 2016-12-16 09:34 | EKG REPORT ---
SEVERITY:- NORMAL ECG - SINUS RHYTHM : Confirmed by: Alverto Morgan 16-Dec-2016 09:34:13
[2016-12-16 10:37] LABS: HEMATOCRIT 41.2 % (36.0-47.0); HEMOGLOBIN 13.7 g/dL (12.0-15.5); HGB HCT DIFFERENCE -0.1; MEAN CORPUSCULAR HGB CONC 33.2 g/dL (32.0-36.0); MEAN CORPUSCULAR VOLUME 90 fl (80-97); RED BLOOD COUNT 4.56 10^6/uL (3.72-5.28); RED CELL DISTRIBUTION WIDTH 13.6 % (11.5-14.0); WHITE BLOOD COUNT 7.9 10^3/uL (4.0-10.5)
[2016-12-16 11:00] LABS: ALANINE AMINOTRANSFERASE 23 U/L (9-52); ALBUMIN 4.3 g/dL (3.5-5.0); ALKALINE PHOSPHATASE 107 U/L (38-126); AMYLASE 80 U/L (30-110); ANION GAP 15 (5-19); ASPARTATE AMINO TRANSFERASE 24 U/L (14-36); BILIRUBIN,TOTAL 0.4 mg/dL (0.2-1.3); BLOOD UREA NITROGEN 12 mg/dL (7-20); CALCIUM 9.8 mg/dL (8.4-10.2); CARBON DIOXIDE 23 mmol/L (22-30); CHLORIDE 106 mmol/L (98-107); GLUCOSE 71 mg/dL (75-110); POTASSIUM 4.2 mmol/L (3.6-5.0); SODIUM 143.9 mmol/L (137-145); TOTAL PROTEIN 7.8 g/dL (6.3-8.2)
[~2016-12-23 06:58] MED LIST: ACETAMINOPHEN 325 MG TABLET PO PRN; BUPIVACAINE HCL 0.25 % INJ/PF (2.5 MG/1 ML) 30 ML VIAL ONE; CEFAZOLIN 1 GM/D5W RTU 1 GM/50 ML RTUPB IV PRN; LACTATED RINGERS 1000 ML IV PRN; LIDOCAINE 0.5% INJ-PF (5 MG/ML) 50 ML SDV SUBCUT PRN
[2016-12-23] MEDS ORDERED: ALBUTEROL SULFATE 0.083% NEB 2.5 MG/3 ML AMPUL NEB ONE ×2 (08:00→08:01)
[2016-12-23] MEDS ORDERED: FAMOTIDINE INJ/PF 20 MG/2 ML SDV IV ONE ×2 (08:26→08:30)
[2016-12-23] MEDS ORDERED: SCOPOLAMINE HYDROBROMIDE 1.5 MG PATCH.TD72 ONE (08:26)
[2016-12-23] MEDS ORDERED: SCOPOLAMINE HYDROBROMIDE 1.5 MG PATCH.TD72 TD ONE (08:30)
[2016-12-23] MEDS ORDERED: FENTANYL CITRATE INJ/PF 100 MCG/2 ML AMPUL ONE ×2 (09:20→09:21)
[2016-12-23] MEDS ORDERED: PROPOFOL INJ 200 MG/20 ML VIAL IV ONE (09:21)
[2016-12-23] MEDS ORDERED: MIDAZOLAM 2 MG/2 ML INJ ONE (09:21)
[2016-12-23] MEDS ORDERED: MORPHINE SULFATE 10 MG/ML INJ ONE (09:22)
[2016-12-23] MEDS ORDERED: FENTANYL CITRATE INJ/PF 100 MCG/2 ML AMPUL IV PRN (10:10)
[2016-12-23] MEDS ORDERED: MORPHINE SULFATE 10 MG/ML INJ IV PRN ×2 (10:10→10:34)
--- NOTE | 2016-12-23 10:32 | Operative Report ---
Operative Report DATE OF SURGERY: 12/23/16 PREOPERATIVE DIAGNOSIS: Symptomatically cholelithiasis with cholecystitis; biliary dyskinesia POSTOPERATIVE DIAGNOSIS: Same OPERATION: 1. Laparoscopic cholecystectomy SURGEON: JAME DIALLO GRAIN CLEANER AND TRANSFER OPERATOR: JORDYN AVILA ANESTHESIA: GA TISSUE REMOVED OR ALTERED: Gallbladder with contents COMPLICATIONS: None ESTIMATED BLOOD LOSS: scant INTRAOPERATIVE FINDINGS: See below PROCEDURE: After obtaining informed consent, the patient was taken to the operating room. General Anesthesia was induced; the arms were extended, and the abdomen was exposed, and prepped and draped in a sterile fashion. Instrumentation was set up for laparoscopic cholecystectomy. Surgical plan and surgical timeout were conducted. A vertical incision was made above the umbilicus, and a verres needle was inserted uneventfully into the peritoneal cavity. Pneumoperitoneum was established. The verres needle was removed and a 5 mm trocar was inserted and a 5 mm flexible laparoscope was inserted. Visualization of the peritoneal cavity confirmed safe uneventful entry. Under direct visualization 2 additional 5 mm ports were established, one in the subxiphoid position and second in the subcostal position. Visualization of the hepatobiliary anatomy revealed no anatomic variations. Took the gallbladder down using electrocautery from the fundus down to the neck of the gallbladder. The neck of the gallbladder and junction with the cystic duct was dissected out. The Cystic artery was in its usual location medial and cephalad to the cystic duct. The cystic artery was surrounded with a right angle clamp, clipped twice proximally and divided with laparoscopic scissors. All bladder was suspended solely from the cystic duct. It was photographed, We now milked the cystic duct of any possible stones, clipped the cystic duct approximately 2 times once distally and divided with scissors. Graspers were repositioned and the gallbladder was removed uneventfully from the abdominal cavity through the super umbilical port site incision. The specimen was examined, then passed off to pathology for permanent analysis. We returned to the peritoneal cavity check for bleeding, and evidence of bile leak, and there was none. We Confirmed satisfactory placement of clips on cystic duct and cystic artery were secured . At this point we felt the operation was complete. The subcutaneous tissue was then anesthetized with quarter percent Marcaine Sponge and needle counts are correct. All ports removed under direct visualization pneumoperitoneum evacuated, and 5 mm port wounds closed with 3-0 Vicryl suture, benzoin and Steri-Strips. The patient was extubated, and taken to the recovery room in stable condition. The physician traffic assistant, Ms. Avila, provided assistance during this case by: Assisting and port insertion, retracting tissue, instillation of local anesthesia and closure of skin incisions.
--- NOTE | 2016-12-23 10:33 | PDOC DISCHARGE SUMMARY ---
Discharge Summary (SDC) - Discharge Final Diagnosis: cholelithiasis with cholecystitis Date of Surgery: 12/23/16 Discharge Date: 12/23/16 Condition: Good Treatment or Instructions: [facility] [address], [place] [address] Discharge Instructions: Laparoscopic Surgery 1. General Information: a. DO NOT DRIVE a car or operate dangerous machinery for 3-4 days or while taking narcotic pain pills. b. DO NOT consume alcohol, tranquilizers, sleeping medications or any non- prescribed medications for 24 hours unless approved by your doctor or as long as taking narcotic prescription medications. c. DO NOT make important decisions or sign any important papers for the first 24 hours after surgery. d. When discharged home the same day of surgery have a responsible person with you for the first night. 2. Activity Restrictions: 2 weeks. a. NO heavy lifting, straining abdominal muscles, bending over a lot, yard work, house work, or sports for [address] for 3-4 days or while taking Ultram . c. It is fine to go for walks, up and down steps, ride in a car. d. Elevate your head when sleeping/resting. 3. Treatment: a. You may shower 24 hours after surgery, no baths or swimming for 2 weeks. Remove band-aids or dressings before shower but leave paper strips (steri-strips ) on the skin to fall off on their own. If still on at postoperative visit they will be removed then. b. Drainage of fluid or blood is not unusual from an incision. If occurs, you can clean with peroxide and cotton ball daily and cover with dry gauze until the wound seals. c. If a lot of bleeding occurs, you can hold pressure with a gauze or cloth over the site for 10 minutes and it will usually stop. If bleeding continues you will need to call for possible evaluation in office or emergency room. 4. Medications: a. Ultram may be taken for pain as needed, one or two tablets every 4-6 hours. Stop the narcotic when able since you cannot take it and drive, and they cause constipation. You may switch to plain Tylenol, Advil or Aleve as you transition from the narcotic. Many adults find good pain relief with Advil 600- 800 mg three times a day with meals. This can cause indigestion, ulcers, and kidney problems with long-term use. b. You should resume all normal medications unless a change is specified by your doctors. c. Begin with clear liquids and may progress to your normal diet if not nauseated. No high fat, high protein foods the day of surgery. Normal diet 6. The following may occur after laparoscopic surgery: a. Shoulder or upper back ache from retained gas that should resolve in 1-2 days b. Soreness and bruising at incision sites will resolve with time. c. Scrotal swelling (labia in women) and bruising is often seen after hernia surgery. d. Sore throat e. Fatigue may last days to weeks. f. Difficulty urinating may occur and may need to come into emergency room for urinary catheter placement. 7. Notify Physician If: a. Worsening or pain not improved with pain medication b. Persistent nausea and vomiting c. Fever above 101 d. Persistent bleeding or swelling at operative site e. Unable to urinate and uncomfortable bladder 6-8 hours after surgery 8..Follow Up Care: a. Schedule a follow up appointment with your doctor for 2 weeks. In the event of any postoperative problems or questions or you may call the office during business hours or the [facility]Call physician evenings and weekends [facility] I understand the instructions for my postoperative care as described above and a copy has been given to me. Patient/Significant Other Witness Date Discharge Diet: As Tolerated Discharge Activity: Activity As Tolerated, Energy Conservation Home Care Assistance: None Needed Report the Following to Your Physician Immediately: Shortness of Breath, Increase in Pain, Fever over 101 Degrees
[2016-12-23] MEDS ORDERED: OXYCODONE-ACETAMINOPHEN 5-325 MG TABLET PO PRN (10:34)
[2016-12-23] MEDS ORDERED: ONDANSETRON HCL INJ/PF 4 MG/2 ML SDV IV PRN (10:34)
[2016-12-23] MEDS ORDERED: METOCLOPRAMIDE HCL INJ/PF 10 MG/2 ML SDV ONE (11:30)
[2016-12-23] MEDS ORDERED: ACETAMINOPHEN 100 ML IV ONE (11:54)
[2016-12-23] MEDS ORDERED: PROMETHAZINE HCL INJ 25 MG/1 ML VIAL ONE (11:56)
[2016-12-23] MEDS ORDERED: ONDANSETRON HCL INJ/PF 4 MG/2 ML SDV ONE (13:22)
[2016-12-23] MEDS ORDERED: NEOSTIGMINE METHYLSULFATE 10 MG/10 ML VIAL ONE (13:22)
[2016-12-23] MEDS ORDERED: ROCURONIUM BROMIDE INJ 50 MG/5 ML VIAL IV ONE (13:22)
[2016-12-23] MEDS ORDERED: SUCCINYLCHOLINE CHLORIDE INJ 200 MG/10 ML VIAL ONE (13:22)
[2016-12-23] MEDS ORDERED: GLYCOPYRROLATE INJ 0.4 MG/2 ML VIAL ONE (13:22)
[2016-12-23] MEDS ORDERED: DEXAMETHASONE SOD PHOSPHATE INJ 4 MG/1 ML VIAL ONE (13:22)
[2016-12-23] MEDS ORDERED: LIDOCAINE 2% INJ-PF (20 MG/ML) 10 ML AMPUL ONE (13:22)
[2016-12-23 13:51] VITALS: BP 110/57
== END 2016-12-23 13:52 | disposition home or self-care (01) ==
LOC: OROUT 06:58
PROVIDERS: ATTEND Surgery
PROC: 0FT44ZZ Resection of Gallbladder, Percutaneous Endoscopic Approach (ICD-10-PCS; principal; 2016-12-23 09:00)
DX: K81.1 Chronic cholecystitis (principal); I10 Essential (primary) hypertension; F41.9 Anxiety disorder, unspecified; Z88.5 Allergy status to narcotic agent; Z87.891 Personal history of nicotine dependence; Z79.82 Long term (current) use of aspirin; Z79.899 Other long term (current) drug therapy
CPT/HCPCS: 93005; 36415; 82150; 85027; 80076; 80048; 88304 ×2; 93010; 94640; 47562; J2250; J0690; J3490 ×4; J1100; J3010; J2550; J0330; J2405; S0020; J2704; S0028; J0131; 790; J2270; J2765

== ENCOUNTER → 2017-02-23 | Outpatient (CLI) | payer MEDICAID ==
[2017-02-23 14:47] LABS: HEMATOCRIT 40.6 % (36.0-47.0); HEMOGLOBIN 13.6 g/dL (12.0-15.5); HGB HCT DIFFERENCE 0.2; MEAN CORPUSCULAR HEMOGLOBIN 30.6 pg (27.0-33.4); MEAN CORPUSCULAR HGB CONC 33.5 g/dL (32.0-36.0); MEAN CORPUSCULAR VOLUME 91 fl (80-97); RED BLOOD COUNT 4.45 10^6/uL (3.72-5.28); RED CELL DISTRIBUTION WIDTH 13.4 % (11.5-14.0)
[2017-02-23 15:03] LABS: APPEARANCE,URINE SLIGHTLY-CLOUDY; BILIRUBIN,URINE NEGATIVE (NEGATIVE); GLUCOSE, URINE NEGATIVE (NEGATIVE); KETONES,URINE NEGATIVE (NEGATIVE); LEUKOCYTE ESTERASE,URINE NEGATIVE (NEGATIVE); NITRITE,URINE NEGATIVE (NEGATIVE); PROTEIN,URINE NEGATIVE (NEGATIVE); URINE SPECIFIC GRAVITY 1.012; UROBILINOGEN,URINE NEGATIVE mg/dL (<2.0)
[2017-02-23 15:04] LABS: ANION GAP 11 (5-19); BLOOD UREA NITROGEN 12 mg/dL (7-20); CALCIUM 9.6 mg/dL (8.4-10.2); CARBON DIOXIDE 20 mmol/L (22-30); CHLORIDE 108 mmol/L (98-107); CREATININE RESULT 1.12 mg/dL (0.52-1.25); GLUCOSE 99 mg/dL (75-110); POTASSIUM 4.6 mmol/L (3.6-5.0)
== END ==
LOC: OD 14:03
PROVIDERS: ATTEND Internal Medicine Nephrology
DX: I12.9 Hypertensive chronic kidney disease with stage 1 through stage 4 chronic kidney disease, or unspecified chronic kidney disease (principal); N18.3 Chronic kidney disease, stage 3 (moderate); D64.9 Anemia, unspecified
CPT/HCPCS: 36415; 80048; 81001; 85027

== ENCOUNTER → 2017-03-17 | Outpatient (CLI) | payer MEDICAID ==
--- NOTE | 2017-03-17 15:01 | RADIOLOGY REPORT (SQ) ---
EXAM DESCRIPTION: MRI HEAD COMBO COMPLETED DATE/TIME: 03/17/2017 2:44 pm REASON FOR STUDY: OCCLUSION AND STENOSIS OF UNSOECIFIED CAROTID ARTERY R09.89 OTH SYMPTOMS AND SIGN S INVOLVING THE CIRC AND RESP SY COMPARISON: 01/23/2016 TECHNIQUE: Multiplanar imaging includes noncontrasted T1, T2, FLAIR, and Diffusion with ADC map seq uences. Contrast enhanced T1 images. Images stored on PACS. CONTRAST TYPE AND DOSE: 7 mL Multihance. RENAL FUNCTION: GFR 49 LIMITATIONS: None. FINDINGS: ANATOMY: No anomalies. Normal vascular flow voids. Pituitary fossa normal. CSF SPACES: Normal size and contour. No hemorrhage. CEREBRUM: A few high-signal intensity lesions scattered throughout the white matter on FLAIR imaging with distribution suggesting chronic microvascular ischemic change. Sulci and gyri normal in size and contour. No evidence of hemorrhage, mass or extraaxial fluid collection. No enhancing lesions. POSTERIOR FOSSA: No signal alteration. No hemorrhage. No edema, masses or mass effect. Internal audit ory canals, cerebello-pontine angles, mastoids normal. DIFFUSION: Negative for acute or subacute infarction. ORBITS: No masses. Globes normal. PARANASAL SINUSES: No fluid levels. Mucosa normal. OTHER: No other significant finding. IMPRESSION: No acute abnormality in the brain. TECHNICAL DOCUMENTATION: JOB ID: [id number]- All Rights Reserved
== END ==
LOC: RAD 13:55
PROVIDERS: ATTEND Student in an Organized Health Care Education/Training Program
DX: I65.29 Occlusion and stenosis of unspecified carotid artery (principal)
CPT/HCPCS: 70553; A9577

== ENCOUNTER → 2017-04-15 | Outpatient (CLI) | payer MEDICARE, MEDICAID ==
--- NOTE | 2017-04-15 18:44 | RADIOLOGY REPORT (SQ) ---
EXAM DESCRIPTION: CHEST PA/LAT COMPLETED DATE/TIME: 04/15/2017 6:32 pm REASON FOR STUDY: Abnormal weight loss COMPARISON: 06/11/2016 EXAM PARAMETERS: NUMBER OF VIEWS: two views TECHNIQUE: Digital Frontal and Lateral radiographic views of the chest acquired. RADIATION DOSE: NA LIMITATIONS: none FINDINGS: LUNGS AND PLEURA: No opacities, masses or pneumothorax. No pleural effusion. MEDIASTINUM AND HILAR STRUCTURES: No masses or contour abnormalities. HEART AND VASCULAR STRUCTURES: Heart normal size. No evidence for failure. BONES: No acute findings. HARDWARE: None in the chest. OTHER: No other significant finding. IMPRESSION: NO SIGNIFICANT RADIOGRAPHIC FINDING IN THE CHEST. TECHNICAL DOCUMENTATION: JOB ID: [id number] [employer]- All Rights Reserved
== END ==
LOC: RAD 18:17
PROVIDERS: ATTEND Student in an Organized Health Care Education/Training Program
DX: R63.4 Abnormal weight loss (principal)
CPT/HCPCS: 71020

== ENCOUNTER 2017-06-23 07:56 | Day surgery (SDC) | payer MEDICARE, MEDICAID ==
[2017-06-23] MEDS ORDERED: ONDANSETRON HCL INJ/PF 4 MG/2 ML SDV ONE (08:01)
[2017-06-23] MEDS ORDERED: DIPHENHYDRAMINE HCL 50 MG/ML VIAL ONE (08:01)
[2017-06-23] MEDS ORDERED: NALOXONE HCL INJ/PF 0.4 MG/1 ML SDV ONE (08:01)
[2017-06-23] MEDS ORDERED: FLUMAZENIL INJ 0.5 MG/5 ML VIAL ONE (08:02)
[2017-06-23] MEDS ORDERED: GLUCAGON,HUMAN RECOMB 1 MG INJ ONE (08:02)
[2017-06-23] MEDS ORDERED: EPINEPHRINE INJ 1 MG/10 ML DISP.SYRIN ONE (08:02)
[2017-06-23] MEDS: MIDAZOLAM 2 MG/2 ML INJ ONE ×6 (08:30→08:47)
[2017-06-23] MEDS: FENTANYL CITRATE INJ/PF 100 MCG/2 ML AMPUL ONE ×4 (08:32→08:39)
--- NOTE | 2017-06-23 08:54 | Operative Report ---
Operative Report DATE OF SURGERY: 06/23/17 Operative Report: The risks benefits and alternatives of the procedure explained to the patient in detail and informed consent is obtained.A GIF Olympus video scope was inserted into the patient's mouth and hypopharynx, the esophagus is identified intubated and insufflated, the scope was then advanced through the esophagus stomach and duodenum, retroflexion maneuver is done, the esophagus stomach and first and second portions of the duodenum examined PREOPERATIVE DIAGNOSIS: Epigastric pain, dyspepsia POSTOPERATIVE DIAGNOSIS: Small hiatal hernia. 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 Gastritis biopsies obtained to rule out Helicobacter pylori OPERATION: EGD with biopsy, EGD with ablation SURGEON: MARÍA LAIRD ANESTHESIA: Moderate Sedation - 8 mg of Versed, 100 mcg of fentanyl. Conscious sedation monitoring time 30 minutes. TISSUE REMOVED OR ALTERED: Gastric mucosal specimen obtained to rule out Helicobacter pylori COMPLICATIONS: None. ESTIMATED BLOOD LOSS: None. INTRAOPERATIVE FINDINGS: As described above. PROCEDURE: Patient tolerated procedure well. No immediate postprocedure complications are noted. Patient discharged in good condition. Discharge date 06/23/2017. Discharge diet: Regular. Discharge activity: Regular. 2-3 week follow-up to discuss findings. Patient is instructed to call the office or proceed to the emergency room should there be any further problems or questions. We will wait on pathology.
[2017-06-23 10:07] VITALS: BP 117/53
== END 2017-06-23 10:10 | disposition home or self-care (01) ==
LOC: END 07:56
PROVIDERS: ATTEND Internal Medicine Gastroenterology
PROC: 0DB68ZX Excision of Stomach, Via Natural or Artificial Opening Endoscopic, Diagnostic (ICD-10-PCS; principal; 2017-06-23 08:30)
PROC: 0D558ZZ Destruction of Esophagus, Via Natural or Artificial Opening Endoscopic (ICD-10-PCS; 2017-06-23 08:30)
DX: K31.9 Disease of stomach and duodenum, unspecified (principal); E78.2 Mixed hyperlipidemia; I10 Essential (primary) hypertension; F17.210 Nicotine dependence, cigarettes, uncomplicated; K44.9 Diaphragmatic hernia without obstruction or gangrene; K22.70 Barrett's esophagus without dysplasia; Z79.899 Other long term (current) drug therapy; Z79.82 Long term (current) use of aspirin
CPT/HCPCS: 43270; 43239; 88305 ×2; J2250; J3010; J0171; J1200; J1610; J2310; J2405; J3490

== ENCOUNTER → 2017-07-22 | Outpatient (CLI) | payer MEDICARE, MEDICAID ==
[2017-07-22 11:17] LABS: HEMATOCRIT 41.5 % (36.0-47.0); HEMOGLOBIN 13.9 g/dL (12.0-15.5); HGB HCT DIFFERENCE 0.2; MEAN CORPUSCULAR HEMOGLOBIN 30.2 pg (27.0-33.4); MEAN CORPUSCULAR HGB CONC 33.5 g/dL (32.0-36.0); MEAN CORPUSCULAR VOLUME 90 fl (80-97); RED CELL DISTRIBUTION WIDTH 13.4 % (11.5-14.0); WHITE BLOOD COUNT 9.3 10^3/uL (4.0-10.5)
[2017-07-22 11:50] LABS: ANION GAP 11 (5-19); BLOOD UREA NITROGEN 17 mg/dL (7-20); CALCIUM 9.9 mg/dL (8.4-10.2); CARBON DIOXIDE 27 mmol/L (22-30); CHLORIDE 105 mmol/L (98-107); CREATININE RESULT 1.21 mg/dL (0.52-1.25); GLUCOSE 80 mg/dL (75-110); POTASSIUM 4.6 mmol/L (3.6-5.0); SODIUM 143.4 mmol/L (137-145)
== END ==
LOC: OD 10:29
PROVIDERS: ATTEND Internal Medicine Nephrology
DX: I12.9 Hypertensive chronic kidney disease with stage 1 through stage 4 chronic kidney disease, or unspecified chronic kidney disease (principal); N18.3 Chronic kidney disease, stage 3 (moderate)
CPT/HCPCS: 36415; 80048; 85027

== ENCOUNTER → 2018-01-24 | Outpatient (CLI) | payer MEDICARE, MEDICAID ==
[2018-01-24 11:05] LABS: ABSOLUTE BASOPHILS # (AUTO) 0.1 10^3/uL (0.0-0.2); ABSOLUTE EOSINOPHILS # (AUTO) 0.3 10^3/uL (0.0-0.6); ABSOLUTE LYMPHOCYTES (AUTO) 3.9 10^3/uL (0.5-4.7); ABSOLUTE MONOCYTES (AUTO) 0.4 10^3/uL (0.1-1.4); BASOPHILS % (AUTO) 1.1 % (0-2); EOSINOPHILS % (AUTO) 3.3 % (0-6); HEMATOCRIT 44.4 % (36.0-47.0); HEMOGLOBIN 14.9 g/dL (12.0-15.5); LYMPHOCYTES % (AUTO) 45.2 % (13-45); MEAN CORPUSCULAR HEMOGLOBIN 30.4 pg (27.0-33.4); MEAN CORPUSCULAR HGB CONC 33.5 g/dL (32.0-36.0); MEAN CORPUSCULAR VOLUME 91 fl (80-97); PLATELET COUNT 238 10^3/uL (150-450); RED BLOOD COUNT 4.89 10^6/uL (3.72-5.28); RED CELL DISTRIBUTION WIDTH 14.1 % (11.5-14.0); SEGMENTED NEUTROPHILS % (AUTO) 45.4 % (42-78); TOTAL CELLS COUNTED % (AUTO) 100 %; WHITE BLOOD COUNT 8.7 10^3/uL (4.0-10.5)
[2018-01-24 11:11] LABS: APPEARANCE,URINE CLEAR; BILIRUBIN,URINE NEGATIVE (NEGATIVE); COLOR,URINE YELLOW; GLUCOSE, URINE NEGATIVE (NEGATIVE); KETONES,URINE NEGATIVE (NEGATIVE); LEUKOCYTE ESTERASE,URINE NEGATIVE (NEGATIVE); NITRITE,URINE NEGATIVE (NEGATIVE); PROTEIN,URINE NEGATIVE (NEGATIVE); URINE SPECIFIC GRAVITY 1.012; UROBILINOGEN,URINE NEGATIVE mg/dL (<2.0)
[2018-01-24 11:40] LABS: ALANINE AMINOTRANSFERASE 42 U/L (9-52); ALBUMIN 4.4 g/dL (3.5-5.0); ALKALINE PHOSPHATASE 106 U/L (38-126); ANION GAP 10 (5-19); ASPARTATE AMINO TRANSFERASE 43 U/L (14-36); BILIRUBIN,DIRECT 0.3 mg/dL (0.0-0.4); BILIRUBIN,TOTAL 0.3 mg/dL (0.2-1.3); BLOOD UREA NITROGEN 16 mg/dL (7-20); CALCIUM 9.7 mg/dL (8.4-10.2); CARBON DIOXIDE 28 mmol/L (22-30); CHLORIDE 107 mmol/L (98-107); GLUCOSE 85 mg/dL (75-110); POTASSIUM 4.5 mmol/L (3.6-5.0); TOTAL PROTEIN 7.6 g/dL (6.3-8.2)
== END ==
LOC: OD 10:13
PROVIDERS: ATTEND Physician Assistant Medical
DX: I12.9 Hypertensive chronic kidney disease with stage 1 through stage 4 chronic kidney disease, or unspecified chronic kidney disease (principal); N18.3 Chronic kidney disease, stage 3 (moderate); R60.9 Edema, unspecified
CPT/HCPCS: 36415; 80053; 81001; 85025

== ENCOUNTER → 2018-08-01 | Outpatient (CLI) | payer MEDICAID, MEDICARE ==
--- NOTE | 2018-08-02 09:08 | XCELERA REPORT ---
[address] [address] Lower Extremity Arterial Evaluation Name: MARQUEZ JACOBO Age: 68 yrs Gender: Female : 1950 Patient Status: Outpatient Patient Location: Study Date: 08/01/2018 01:14 PM Procedure: A color flow and duplex scan of the lower extremity arteries was performed bilaterally with velocity and waveform anaylsis. Reason For Study: CLAUDICATION Ordering Physician: REGGIE JOAQUIN Performed By: Sharda Almanza Measurements and Calculations Right Left GRANITE CHIP TERRAZZO FINISHER PSV 202.3 200.4 cm/sec Prox PFA PSV -110.8 -118.6cm/sec Prox Pop A PSV 74.6 50.9 cm/sec Dist NATASHA PSV 51.0 73.9 cm/sec Dist BUCKSHOT SWAGE OPERATOR PSV 44.0 34.9 cm/sec Ryne Pedis PSV 44.0 62.1 cm/sec Right Side Arterial Evaluation Moderate amount of intimal calcification noted. Normal velocity and triphasic waveforms noted from the Common Femoral artery to the Popliteal artery. Biphasic, almost normal findings in the infrageniculate vessels. 0-19% stenosis at the infrageniculate vessels.. Ankle Brachial index is 1.01. Left Side Arterial Evaluation Moderate amount of intimal calcification noted. Normal velocity and triphasic waveforms noted from the Common Femoral artery to the Femoral artery. Biphasic, almost normal findings in the Popliteal and infrageniculate vessels. 0-19% stenosis at the Popliteal artery vessels.. Ankle Brachial index is 1.07. Interpretation Summary Mild hemodynamically significant lesions in the bilateral lower extremities, on duplex imaging, at rest. : REGGIE JOAQUIN > Rocael Suarez
== END ==
LOC: SP 12:32
PROVIDERS: ATTEND Student in an Organized Health Care Education/Training Program
DX: I73.9 Peripheral vascular disease, unspecified (principal)
CPT/HCPCS: 93925

== ENCOUNTER → 2018-08-05 | Outpatient (CLI) | payer MEDICAID, MEDICARE ==
--- NOTE | 2018-08-05 14:08 | WOMENS IMAGING REPORT ---
EXAM DESCRIPTION: BONE DENSITY HIP/SPINE COMPLETED DATE/TIME: 08/05/2018 1:21 pm REASON FOR STUDY: DISORDER OF THE BONE M89.9 Z12.31 ENCNTR SCREEN MAMMOGRAM FOR MALIGNANT NEOPLASM OF MARGARITA M89.9 DISORDER OF BONE, UNSPECIFIED COMPARISON: None. TECHNIQUE: Dual-Energy X-ray Absorptiometry (DEXA) of the AP Spine and Hip. LIMITATIONS: None. FINDINGS: LUMBAR SPINE: The bone mineral density (BMD) measured from L1-L4 in the AP projection correlates with a T-score of -0.7, which is normal as defined by the World Health Organization. HIP: The bone mineral density (BMD) measured in the left hip correlates with a T-score of -2.1, which is o steopenia as defined by the World Health Organization. IMPRESSION: 1. LUMBAR SPINE: Normal 2. HIP: Osteopenia COMMENT: The World Health Organization defines low BMD as follows: T-score: Normal: Greater than -1.0 Osteopenia: Between -1.0 and -2.5 Osteoporosis: Less than -2.5 without fractures Established osteoporosis: Less than -2.5 with fractures In general, you may wish to consider: Diagnosis Treatment Follow-up DEXA Normal BMD Prevention 2-3 years Osteopenia Prevention/Therapy 1-2 years Osteoporosis Therapy Yearly TECHNICAL DOCUMENTATION: JOB ID: [id number] [employer]- All Rights Reserved Reading location - IP/workstation name: [email or web address]
--- NOTE | 2018-08-05 14:16 | WOMENS IMAGING REPORT ---
EXAM DESCRIPTION: 3D SCREENING MAMMO BILAT COMPLETED DATE/TIME: 08/05/2018 1:21 pm REASON FOR STUDY: ROUTINE SCREENING MAMMOGRAM Z12.31 Z12.31 ENCNTR SCREEN MAMMOGRAM FOR MALIGNANT N EOPLASM OF MARGARITA M89.9 DISORDER OF BONE, UNSPECIFIED COMPARISON: 12/07/2016 and 12/04/2015. TECHNIQUE: Standard craniocaudal and mediolateral oblique views of each breast recorded using digita l acquisition and breast tomosynthesis. LIMITATIONS: None. FINDINGS: No masses, calcifications or architectural distortion. No areas of suspicion. Read with the assistance of CAD. .[facility] - R2 Cenova Version 1.3 .[facility] Imaging - R2 Cenova Version 1.3 .[facility] Imaging - R2 Cenova Version 2.4 .[facility] - R2 Cenova Version 2.4 .[facility] - R2 Hairspring Assembler Version 9.2 IMPRESSION: NORMAL MAMMOGRAM. BIRADS 1. BREAST DENSITY: c. The breasts are heterogeneously dense, which may obscure small masses. BIRAD: 1 NEGATIVE RECOMMENDATION: ROUTINE SCREENING COMMENT: The patient has been notified of the results by letter per SA requirements. Additional no tification policies are in place for contacting patient with suspicious or incomplete findings. Quality ID #[id number]: The [employer] recommends an annual screening mammogram for women aged 40 years or over. This facility utilizes a reminder system to ensure that all patients receive reminder letters, and/or direct phone calls for appointments. This includes reminders for routine scr eening mammograms, diagnostic mammograms, or other Breast Imaging Interventions when appropriate. Th is patient will be placed in the appropriate reminder system. The [employer] (ACR) has developed recommendations for screening MRI of the breast s in certain patient populations, to be used in conjunction with mammography. Breast MRI surveillanc e may be appropriate for women with more than 20% lifetime risk of developing breast cancer as deter mined by genetic testing, significant family history of the disease, or history of mantle radiation f or Hodgkins Disease. ACR Practice Guidelines 2008. DBT Technology DBT is a type of tomographic mammography. With conventional mammography, overlapping breast tissue ma y make lesions difficult to detect, even with good compression. DBT uses an x-ray tube that rotates a round the breast, taking images at different angles. These images are then combined to create thin sl ices of the breast that the radiologist can view as a 3D reconstruction. The GELI unit can perform full-field digital mammograms (2D imaging); or DBT (3D imaging); or both, in a combination mode that quickly performs both the mammogram and the tomosynthesis scan while the breast is still compressed. PQRS 6045F: Fluoroscopic imaging is not utilized for breast tomosynthesis. TECHNICAL DOCUMENTATION: FINDING NUMBER: (1) ASSESSMENT: (1) JOB ID: [id number] [employer]- All Rights Reserved Reading location - IP/workstation name: [email or web address]
== END ==
LOC: WI 13:08
PROVIDERS: ATTEND Student in an Organized Health Care Education/Training Program
DX: Z12.31 Encounter for screening mammogram for malignant neoplasm of breast (principal); M89.9 Disorder of bone, unspecified
CPT/HCPCS: 77063; 77067; 77080

== ENCOUNTER 2019-10-26 08:58 | Emergency (ER) | payer MEDICARE, OTHER ==
[2019-10-26 10:13] LABS: ABSOLUTE BASOPHILS # (AUTO) 0.1 10^3/uL (0.0-0.2); ABSOLUTE EOSINOPHILS # (AUTO) 0.2 10^3/uL (0.0-0.6); ABSOLUTE LYMPHOCYTES (AUTO) 3.7 10^3/uL (0.5-4.7); ABSOLUTE MONOCYTES (AUTO) 0.4 10^3/uL (0.1-1.4); ABSOLUTE NEUT (AUTO) 5.2 10^3/uL (1.7-8.2); BASOPHILS % (AUTO) 0.7 % (0-2); EOSINOPHILS % (AUTO) 1.9 % (0-6); HEMATOCRIT 48.4 % (36.0-47.0); HEMOGLOBIN 16.8 g/dL (12.0-15.5); LYMPHOCYTES % (AUTO) 38.6 % (13-45); MEAN CORPUSCULAR HEMOGLOBIN 31.4 pg (27.0-33.4); MEAN CORPUSCULAR HGB CONC 34.7 g/dL (32.0-36.0); MEAN CORPUSCULAR VOLUME 91 fl (80-97); MONOCYTES % (AUTO) 4.4 % (3-13); PLATELET COUNT 240 10^3/uL (150-450); RED BLOOD COUNT 5.35 10^6/uL (3.72-5.28); RED CELL DISTRIBUTION WIDTH 13.4 % (11.5-14.0); SEGMENTED NEUTROPHILS % (AUTO) 54.4 % (42-78); TOTAL CELLS COUNTED % (AUTO) 100 %; WHITE BLOOD COUNT 9.5 10^3/uL (4.0-10.5)
[2019-10-26 10:19] LABS: INTERNATIONAL RATION (INR) 0.95; PROTHROMBIN TIME 12.6 SEC (11.4-15.4)
[2019-10-26 10:30] LABS: ALBUMIN 4.6 g/dL (3.5-5.0); ALKALINE PHOSPHATASE 124 U/L (38-126); ANION GAP 10 (5-19); ASPARTATE AMINO TRANSFERASE 33 U/L (14-36); BILIRUBIN,DIRECT 0.4 mg/dL (0.0-0.4); BILIRUBIN,TOTAL 0.8 mg/dL (0.2-1.3); BLOOD UREA NITROGEN 11 mg/dL (7-20); CALCIUM 10.1 mg/dL (8.4-10.2); CARBON DIOXIDE 27 mmol/L (22-30); CHLORIDE 105 mmol/L (98-107); GLUCOSE 103 mg/dL (75-110); POTASSIUM 4.2 mmol/L (3.6-5.0); TOTAL PROTEIN 8.1 g/dL (6.3-8.2)
--- NOTE | 2019-10-26 11:44 | ER Document Report ---
ED General - General Chief Complaint: Nausea Stated Complaint: DIFFICILTY BREATHING Time Seen by Provider: 10/26/19 11:07 Primary Care Provider: CHELA ALTAMIRANO PA-C [Primary Care Provider] - Follow up as needed TRAVEL OUTSIDE OF THE [place] IN LAST 30 DAYS: No - HPI Notes: Patient is a 69-year-old female who presents to the emergency department for evaluation. She states she feels jumpy, nauseated, short of breath, depressed. The patient has been on a combination of chlordiazepoxide/amitriptyline for several years. She wants to come off of them. She had was concerned that when these medicines were that she would have an allergic reaction, she believes she may have had one in the past. She states her reaction was depression, jumpiness. I do not suspect this was a true allergic reaction. The patient is unable to obtain the medicine in combination anymore. Beyond that, she wanted to come off these medications for several years. As a result, she did not take any of the amitriptyline or the chlordiazepoxide since Wednesday. Right now she feels nauseated, has had an episode of nonbloody, nonbilious emesis. She is very tearful. She states she is having muscle jumps and tingling in her right hand. She presents to the ED for further evaluation. - Related Data Allergies/Adverse Reactions: amitriptyline Allergy (Severe, Verified 06/23/17 08:14) VERY SICK, N/V, HIVES codeine [Codeine] Allergy (Severe, Verified 06/23/17 08:14) N&V, HIVES diazepam [From Valium] Allergy (Severe, Verified 06/23/17 08:14) HEART RACE, N&V trazodone Allergy (Severe, Verified 06/23/17 08:14) DIZZINESS, N/V metoclopramide [From Reglan] Allergy (Verified 06/23/17 08:14) Home Medications: fish oil, 81 aspirin, metoprol, premarin, chlordiazepoxide, daily vitamin, valacyclovir Past Medical History - General Information source: Patient, Relative - Social History Smoking Status: Former Smoker Family History: Reviewed & Not Pertinent, Hypertension Patient has suicidal ideation: No Patient has homicidal ideation: No - Past Medical History Cardiac Medical History: Reports: Hx Hypertension Denies: Hx Coronary Artery Disease, Hx Heart Attack Pulmonary Medical History: Reports: Hx Bronchitis Denies: Hx Asthma, Hx COPD, Hx Pneumonia, Hx Tuberculosis Neurological Medical History: Denies: Hx Cerebrovascular Accident, Hx Seizures GI Medical History: Reports: Hx Gastroesophageal Reflux Disease, Hx Ulcer. Denies: Hx Hepatitis, Hx Hiatal Hernia Musculoskeletal Medical History: Denies Hx Arthritis Psychiatric Medical History: Reports: Hx Anxiety, Hx Depression Infectious Medical History: Denies: Hx Hepatitis Past Surgical History: Reports: Hx Hysterectomy. Denies: Hx Mastectomy, Hx Open Heart Surgery, Hx Pacemaker - Immunizations Hx Diphtheria, Pertussis, Tetanus Vaccination: No Review of Systems - Review of Systems Constitutional: See HPI EENT: No symptoms reported Cardiovascular: No symptoms reported Respiratory: No symptoms reported Gastrointestinal: See HPI Genitourinary: No symptoms reported Musculoskeletal: No symptoms reported Skin: No symptoms reported Neurological/Psychological: See HPI Physical Exam - Vital signs Vitals: Resp 18 10/26/19 09:02 - Notes Notes: This is a pleasant but tearful 69-year-old female who appears her stated age in no acute distress. Vital signs reviewed, please refer to chart. Head is normocephalic, atraumatic. Pupils equal round, reactive to light. Neck is supple without meningismus. Heart is regular rate and rhythm. Lungs are clear to auscultation bilaterally. Abdomen is soft, nontender, normoactive bowel so unds throughout. Extremities without cyanosis, clubbing. Posterior calves are nontender. Peripheral pulses are equal. Skin is warm and dry. Patient is awake, alert, oriented x3. Cranial nerves II - XII are grossly intact without focal neurological deficits. Strength is plus 5 out of 5 bilateral upper and lower extremities. Sensation is intact. Reflexes symmetrical. Intact [id number], rapid alternating movements, [id number]. Course - Re-evaluation Re-evalutation: 10/26/19 12:28 Patient presents to the emergency department for evaluation. Laboratory investigations were obtained. She is placed on a monitoring coordinator. My suspicion is that all of her symptoms are secondary to withdrawal of the amitriptyline and the chlordiazepoxide. She had the medications with her. I instructed her to take them, after a long discussion about potential withdrawal symptoms, and how I believe that the great majority of her issues today were because of withdrawal of these medications. I instructed her to follow-up with her primary care provider and discuss a more safe and appropriate way to come off of these medications. She voiced understanding to this and was amenable to this plan. Laboratory vesication's were otherwise unremarkable. She is to follow-up with primary care, return to the ED with worsening or new concerning symptoms of any sort. - Vital Signs Vital signs: Temp Pulse Resp BP Pulse Ox 97.8 F 15 150/58 H 10/26/19 09:29 10/26/19 10:01 10/26/19 10:01 - Laboratory Result Diagrams: 10/26/19 09:21 10/26/19 09:21 Laboratory results interpreted by me: 10/26/19 10/26/19 09:21 09:21 RBC 5.35 H Hgb 16.8 H Hct 48.4 H Est GFR ( Amer) 52 L Est GFR (MDRD) Non-Af 43 L - EKG Interpretation by Me Additional EKG results interpreted by me: 10/26/19 12:28 Sinus mechanism with rate of 76 bpm. Normal axis and intervals, no acute ST changes concerning for ischemia or infarction. Discharge - Discharge Clinical Impression: Medication withdrawal Qualifiers: Substance type: other psychoactive substance Qualified Code(s): F19.939 - Other psychoactive substance use, unspecified with withdrawal, unspecified Condition: Stable Disposition: HOME, SELF-CARE Instructions: Nausea or Vomiting, Nonspecific ([facility]) Additional Instructions: It is likely that all of your symptoms have been secondary to withdrawal from the amitriptyline and the chlordiazepoxide. Please take these as discussed. Follow-up with your primary care provider to set up an appropriate and medically safe way to taper off of these medications. Zofran as needed for nausea. If you develop worsening or new concerning symptoms of any sort, return immediately to the emergency department for evaluation. Referrals: CHELA ALTAMIRANO PA-C [Primary Care Provider] - Follow up as needed
[2019-10-26 12:40] VITALS: BP 144/58
--- NOTE | 2019-10-26 15:45 | EKG REPORT ---
SEVERITY:- NORMAL ECG - SINUS RHYTHM : Confirmed by: Betsy Rojas MD 26-Oct-2019 15:44:53
== END 2019-10-26 12:40 | disposition home or self-care (01) ==
LOC: ER 08:58
DX: F19.939 Other psychoactive substance use, unspecified with withdrawal, unspecified (principal); R11.2 Nausea with vomiting, unspecified; R06.02 Shortness of breath; R20.2 Paresthesia of skin; I10 Essential (primary) hypertension; Z87.891 Personal history of nicotine dependence; Z79.82 Long term (current) use of aspirin; Z79.899 Other long term (current) drug therapy; Z88.8 Allergy status to other drugs, medicaments and biological substances; Z88.6 Allergy status to analgesic agent; Z88.5 Allergy status to narcotic agent
CPT/HCPCS: 36415; 80053; 85025; 85610; 93005; 93010; 99284

== ENCOUNTER → 2019-11-20 | Outpatient (CLI) | payer MEDICARE, OTHER ==
--- NOTE | 2019-11-20 15:16 | RADIOLOGY REPORT (SQ) ---
EXAM DESCRIPTION: BARIUM SWALLOW ESOPHAGUS COMPLETED DATE/TIME: 11/20/2019 10:05 am REASON FOR STUDY: R13.10 DYSPHAGIA, UNSPECIFIED R13.10 DYSPHAGIA, UNSPECIFIED COMPARISON: None. TECHNIQUE: Under fluoroscopic guidance, patient ingested effervescent granules followed by thick and thin barium. Fluoroscopic spot images and routine radiographic images acquired and stored on PACS. 12 MM BARIUM TABLET GIVEN: The patient swallowed barium tablet without difficulty. Tablet stuck at t he GE junction for approximately 30 minutes. LIMITATIONS: None. FLUOROSCOPY TIME: FLUORO TIME: 5.1 minutes 6 images saved to PACS. FINDINGS: NEUROMUSCULAR COORDINATION OF SWALLOW: Normal. No aspiration. ESOPHAGEAL MOTILITY: Normal peristalsis. No esophageal spasm. ESOPHAGEAL MUCOSA: Normal mucosa without masses or ulceration. GASTRO-ESOPHAGEAL JUNCTION: Mild, smooth narrowing of the distal esophagus. No hiatal hernia. Gastr oesophageal reflux seen during the study. NON-GI TRACT STRUCTURES: No significant finding. OTHER: No other significant finding. IMPRESSION: MILD SMOOTH NARROWING OF THE DISTAL ESOPHAGUS WHICH IMPEDED PASSAGE OF 12 MM BARIUM TABL ET FOR 30 MINUTES. GASTROESOPHAGEAL REFLUX. RECOMMENDATION: NONE COMMENT: None Quality ID [id number]: Final reports for procedures using fluoroscopy that document radiation exposure evaristo sebastian, or exposure time and number of fluorographic images (if radiation exposure indices are not avail able) TECHNICAL DOCUMENTATION: JOB ID: [id number] 2010 [employer] All Rights Reserved Reading location - IP/workstation name: [email or web address] [id number]
== END ==
LOC: RAD 09:15
PROVIDERS: ATTEND Internal Medicine Gastroenterology
DX: K21.9 Gastro-esophageal reflux disease without esophagitis (principal); R13.10 Dysphagia, unspecified
CPT/HCPCS: 74220

== ENCOUNTER → 2020-07-26 | Outpatient (CLI) | payer MEDICARE, OTHER ==
--- NOTE | 2020-07-26 14:31 | RADIOLOGY REPORT (SQ) ---
EXAM DESCRIPTION: CHEST 2 VIEWS IMAGES COMPLETED DATE/TIME: 07/26/2020 1:22 pm REASON FOR STUDY: R06.02 SHORTNESS OF BREATH COMPARISON: 04/15/2017 EXAM PARAMETERS: NUMBER OF VIEWS: two views TECHNIQUE: Digital Frontal and Lateral radiographic views of the chest acquired. RADIATION DOSE: NA LIMITATIONS: none FINDINGS: LUNGS AND PLEURA: Hyperexpansion of the lungs. No infiltrate, effusion, or mass. MEDIASTINUM AND HILAR STRUCTURES: No masses or contour abnormalities. HEART AND VASCULAR STRUCTURES: Heart normal size. No evidence for failure. BONES: No acute findings. HARDWARE: None in the chest. OTHER: No other significant finding. IMPRESSION: Chronic lung changes with no acute cardiopulmonary findings. TECHNICAL DOCUMENTATION: JOB ID: [id number] 2010 [employer]- All Rights Reserved Reading location - IP/workstation name: [email or web address]
== END ==
LOC: RAD 12:58
PROVIDERS: ATTEND Family Medicine
DX: R06.02 Shortness of breath (principal)
CPT/HCPCS: 71046

== ENCOUNTER 2020-10-15 09:27 | Emergency (ER) | payer MEDICARE, OTHER ==
--- NOTE | 2020-10-15 10:38 | RADIOLOGY REPORT (SQ) ---
EXAM DESCRIPTION: FINGER RIGHT IMAGES COMPLETED DATE/TIME: 10/15/2020 10:27 am REASON FOR STUDY: smashed finger in door COMPARISON: None. NUMBER OF VIEWS: Three views. TECHNIQUE: AP, lateral, and oblique images acquired of the right second finger. LIMITATIONS: None. FINDINGS: MINERALIZATION: Normal. BONES: Nondisplaced tuft fracture of the 2nd digit. SOFT TISSUES: Soft tissue swelling is seen of the 2nd digit distal phalanx. OTHER: No other significant finding. IMPRESSION: Nondisplaced tuft fracture of the 2nd digit. COMMENT: SITE OF TRAUMA/COMPLAINT MARKED/STAMP COMPLETED: NO. TECHNICAL DOCUMENTATION: JOB ID: [id number] 2010 [employer]- All Rights Reserved Reading location - IP/workstation name: [email or web address]
--- NOTE | 2020-10-15 10:51 | ER Document Report ---
HPI - HPI Pain Level: 5 Notes: 70-year-old female presents to the emergency room today for evaluation of her right second finger after she smashed it in a door 3 weeks ago. Reports she is having increased pain and swelling. Patient has been seen multiple times by [facility] urgent care, she was prescribed Keflex flex week as well as naproxen. They told her they were not sure she broke her finger, she came today for reevaluation. Reports pain is 4 out of 5, throbbing sharp. Has not follow- up with an account review specialist. States she tried to soak her hand in some lukewarm water without full relief. Denies fevers, chills, chest pain,palpitations, shortness of breath, dyspnea, nausea, vomiting, diarrhea, abdominal pain, hematuria,blurred vision, double vision, loss of vision, speech changes, LH, dizziness, syncope, headaches, wheezing, ST, URI, neck pain, weakness, bowel or bladder dysfunction, saddle anesthesia, numbness or tingling in bilateral upper or lower extremities equally, muscle paralysis, weakness in bilateral upper or lower extremities equally or rash. Denies IV drug use. - REPRODUCTIVE Reproductive: DENIES: : Past Medical History - General Information source: Patient - Social History Smoking Status: Current Every Day Smoker Chew tobacco use (# tins/day): No Frequency of alcohol use: None Drug Abuse: None Family History: Reviewed & Not Pertinent, Hypertension - Past Medical History Cardiac Medical History: Reports: Hx Hypertension Denies: Hx Coronary Artery Disease, Hx Heart Attack Pulmonary Medical History: Reports: Hx Bronchitis Denies: Hx Asthma, Hx COPD, Hx Pneumonia, Hx Tuberculosis Neurological Medical History: Denies: Hx Cerebrovascular Accident, Hx Seizures GI Medical History: Reports: Hx Gastroesophageal Reflux Disease, Hx Ulcer. Denies: Hx Hepatitis, Hx Hiatal Hernia Musculoskeletal Medical History: Denies Hx Arthritis Psychiatric Medical History: Reports: Hx Anxiety, Hx Depression Infectious Medical History: Denies: Hx Hepatitis Past Surgical History: Reports: Hx Hysterectomy. Denies: Hx Mastectomy, Hx Open Heart Surgery, Hx Pacemaker - Immunizations Hx Diphtheria, Pertussis, Tetanus Vaccination: No Vertical Provider Document - CONSTITUTIONAL Agree With Documented VS: Yes Exam Limitations: No Limitations General Appearance: WD/WN Notes: MEDICATIONS: I agree with the patient medications as charted by the RN. ALLERGIES: I agree with the allergies as charted by the RN. PAST MEDICAL HISTORY/PAST SURGICAL HISTORY: Reviewed and agree as charted by RN. SOCIAL HISTORY: Reviewed and agree as charted by RN. FAMILY HISTORY: No significant familial comorbid conditions directly related to patient complaint EXAM: Reviewed vital signs as charted by RN. PHYSICAL EXAMINATION: reviewed vital signs by RN GENERAL: Well-appearing, well-nourished and in no acute distress. HEAD: Atraumatic, normocephalic. EYES: Pupils equal round and reactive to light, extraocular movements intact, conjunctiva are normal. ENT: Nares patent, oropharynx clear without exudates. Moist mucous membranes. NECK: Normal range of motion, supple without lymphadenopathy LUNGS: Breath sounds clear to auscultation bilaterally and equal. No wheezes rales or rhonchi. HEART: Regular rate and rhythm without murmurs ABDOMEN: Soft, nontender, nondistended abdomen. No guarding, no rebound. No masses appreciated. Female : deferred Musculoskeletal: Normal range of motion, no pitting or edema. No cyanosis. NEUROLOGICAL: Cranial nerves grossly intact. Normal speech, normal gait. Normal sensory, motor exams PSYCH: Normal mood, normal affect. SKIN: Warm, Dry, normal turgor, no rashes or lesions noted. Right distal aspect of phalanx with abrasion on volar aspect, no signs of infection such as redness, swelling, drainage. pain to right 2nd distal phalange on palpation. no pain to wrist with flexion, extension, inversion, eversion of wrist. digits in right and left with full PROM. 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 Snuffbox tenderness negative on right. radial pulses + 2 BUE equally. Negative kanavels sign. No open wounds or drainage from finger, healing abrasion to volar aspect of right 2nd distal phalange. No vascular compromise.No body crepitus or focal area of TTP. no p ain with opposition, flexion, extension, abduction and adduction on right. Motor and sensory function of ulnar, radial, medial nerves intact bilaterally and equally. strength 5/5 in BUE equally. - INFECTION CONTROL TRAVEL OUTSIDE OF THE [place] IN LAST 30 DAYS: No Course - Re-evaluation Re-evalutation: 10/15/20 11:30 Afebrile vital stable no distress. Nurses notes reviewed. X-ray of right hand does show a right second phalanx non displaced tuft fracture. Noted abrasion at distal aspect of second phalanx. No erythema induration or warmth to touch. Patient is on Keflex for the last week that was prescribed to her from the local urgent care. I did have Dr. Nitish Wagoner, ER supervising physician, evaluate the patient at 1120 for a second opinion to make sure patient does not have any infectious processes such as a felon. Patient does have full extension with passive range of motion on her second right phalange Dr. Wagoner did not feel that she needs an incision and drainage, denies patient to follow-up with account review specialist today to make an appointment, I also did add Bactrim antibiotic therapy along with her taking Keflex as already directed. We will give patient a sixpack of [place] to take home for patient stating that her pain is 5 out of 5 for the last week or so. Apply warm compress to site 20 minutes on 20 minutes off several times a day. After performing a Medical Screening Examination, I estimate there is LOW risk for OPEN FRACTURE, COMPARTMENT SYNDR OME, TENDON RUPTURE, ACUTE NEUROVASCULAR INJURY, or RETAINED FOREIGN BODY, thus I consider the discharge disposition reasonable. Also, there is no evidence or peritonitis, sepsis, or toxicity. I have reevaluated this patient multiple times and no significant life threatening changes are noted. The patient and I have discussed the diagnosis and risks, and we agree with discharging home with close follow-up with the understanding that symptoms and presentations can change. We also discussed returning to the Emergency Department immediately if new or worsening symptoms occur. We have discussed the symptoms which are most concerning (e.g., changing or worsening pain, fever, numbness, weakness, cool or painful digits) that necessitate immediate return. - Vital Signs Vital signs: Temp Pulse Resp BP Pulse Ox 97.6 F 81 16 158/72 H 99 10/15/20 09:35 10/15/20 09:35 10/15/20 09:35 10/15/20 09:35 10/15/20 09:35 - Laboratory Results Critical Laboratory Results Reviewed: No Critical Results - Radiology Results Critical Radiology Results Reviewed: No Critical Results Discharge - Discharge Clinical Impression: right finger tuft fracture Condition: Stable Disposition: HOME, SELF-CARE Instructions: Oral Narcotic Medication ([facility]), Tuft Fracture of the Finger ([facility]) Additional Instructions: You fractured the tuft of your right second finger. Please follow-up with the account review specialist within the next 24 to 48 hours. Continue taking Keflex as already prescribed to you and please take the Bactrim twice a day for 10 days. You can alternate between Tylenol and naproxen as you already are doing. Please elevate above the level of your heart to help reduce swelling. You can apply heat 20 minutes on 20 minutes off several times a day. Follow-up with your primary care provider as needed. Return immediately for any new or worsening symptoms. Follow up with primary care provider, call tomorrow to make followup appointment. Prescriptions: Sulfamethoxazole/Trimethoprim [Bactrim Ds Tablet] 1 each PO BID #20 tablet Referrals: ISIDRA PERALTA MD [Primary Care Provider] - Follow up as needed MAN VIEIRA MD [COMMUNITY BASED STAFF] - Follow up as needed AKTHY MARTINEZ DO [ACTIVE STAFF] - Follow up in 3-5 days
[2020-10-15] MEDS ORDERED: HYDROCODONE/ACETAMINOPHEN 5-325 MG (6 TAB/ER DISP) PO PRN (10:55)
[2020-10-15 11:50] VITALS: BP 151/67
== END 2020-10-15 11:55 | disposition home or self-care (01) ==
LOC: ER 09:27
DX: S62.630A Displaced fracture of distal phalanx of right index finger, initial encounter for closed fracture (principal); R22.31 Localized swelling, mass and lump, right upper limb; X58.XXXA Exposure to other specified factors, initial encounter; F17.200 Nicotine dependence, unspecified, uncomplicated; I10 Essential (primary) hypertension; Z90.710 Acquired absence of both cervix and uterus
CPT/HCPCS: 99284; 73140; A9270